=== PATIENT | female | born 1975 | race Caucasian/White ===

== ENCOUNTER → 2017-10-11 | Outpatient (CLI) | payer BC ==
--- NOTE | 2017-10-13 08:12 | MM ---
Reason for exam: screening (asymptomatic). Last mammogram was performed 1 year and 8 months ago. History: Patient had first child at age 33. Family history of breast cancer in mother at age 58. Took hormonal contraceptives for 1 year. Physical Findings: A clinical breast exam by your physician is recommended on an annual basis and results should be correlated with mammographic findings. MG 3D Screening Mammo W/Cad Bilateral CC and MLO view(s) were taken. Prior study comparison: February 26, 2016, mammogram, performed at [facility]. The breast tissue is heterogeneously dense. This may lower the sensitivity of mammography. There is no discrete abnormality. No significant changes when compared with prior studies. ASSESSMENT: Negative, BI-RAD 1 RECOMMENDATION: Routine screening mammogram of both breasts in 1 year.
== END | disposition home or self-care (01) ==
LOC: RADMAMWWP 16:10
PROVIDERS: ATTEND Family Medicine
DX: Z12.31 Encounter for screening mammogram for malignant neoplasm of breast (principal)
CPT/HCPCS: 77063; 77067

== ENCOUNTER → 2019-08-16 | Outpatient (CLI) | payer OTHER ==
--- NOTE | 2019-08-17 11:02 | MM ---
Reason for exam: screening (asymptomatic). Last mammogram was performed 1 year and 10 months ago. History: Patient had first child at age 33. Family history of breast cancer in mother at age 58. Took hormonal contraceptives for 1 year. Physical Findings: A clinical breast exam by your physician is recommended on an annual basis and results should be correlated with mammographic findings. MG 3D Screening Mammo W/Cad Bilateral CC and MLO view(s) were taken. Prior study comparison: October 11, 2017, bilateral MG 3d screening mammo w/cad. February 26, 2016, mammogram, performed at [facility]. The breast tissue is heterogeneously dense. This may lower the sensitivity of mammography. No significant changes when compared with prior studies. ASSESSMENT: Negative, BI-RAD 1 RECOMMENDATION: Routine screening mammogram of both breasts in 1 year.
== END | disposition home or self-care (01) ==
LOC: RADMAMWWP 08:53
PROVIDERS: ATTEND Family Medicine
DX: Z12.31 Encounter for screening mammogram for malignant neoplasm of breast (principal)
CPT/HCPCS: 77063; 77067

== ENCOUNTER → 2020-03-05 | Outpatient (CLI) | payer OTHER ==
--- NOTE | 2020-03-05 15:58 | P.HPBAR ---
Bariatric H&P - History & Physicial H&P Date: 03/05/20 History & Physicial: Visit/CC: Patient initial contact: Initial weight: Initial weight in pounds: Height: Initial BMI: Last weight: Current weight: Current weight in pounds: Current BMI: [place] body weight (based on NIH guidelines): Excess body weight loss: The patient is a 44 year-old F who presents for Bariatric Assessment. DATE OF SERVICE: 03/05/2020 REASON FOR CONSULTATION: Initial bariatric evaluation. HISTORY OF PRESENT ILLNESS: Hannah Thomas is a 44-year-old female who comes with lifelong morbid obesity. She comes in looking into the sleeve gastrectomy. She has done medical weight loss, slim fast, nutrisystem, keto diet without successful weight loss. Her highest weight is 322 pounds. Her most weight loss was medical weight loss of 60 pounds. Both parents have trouble with obesity. She denies moderate gastroesphageal reflux disease. She denies stomach or esophageal cancer in the family. She is also look into bypass. She presents to me for the first time in consultation for surgical weight loss options. At height of 5 feet 6 inches, her ideal body weight is 144 pounds. Her highest weight is 322 pounds, body mass index 52.1. She comes in 316 pounds. Her body mass index is 51.2. She is 162 pounds overweight. PAST MEDICAL HISTORY: 1. Morbid obesity due to excess calories 2. Body mass index of , initial 3. Hyperlipidemia 4. Depressive disorder 5. Generalized anxiety disorder 6. Bipolar disorder PAST SURGICAL HISTORY: 1. section HOME MEDICATIONS: Home Medications Medication Instructions Recorded Confirmed Atorvastatin [Lipitor] 20 mg PO DAILY 03/04/20 03/05/20 DULoxetine HCL [Cymbalta] 120 mg PO HS 03/04/20 03/05/20 Ergocalciferol [Vitamin D2 (1250 125 mg PO DAILY 03/04/20 03/05/20 Mcg = [id number] Iu)] Lurasidone [Latuda] 40 mg PO HS 03/04/20 03/05/20 lamoTRIgine [LaMICtal] 100 mg PO DAILY 03/04/20 03/05/20 ALLERGIES: Allergies Allergy/AdvReac Type Severity Reaction Status Date / Time Penicillins Allergy Rash/Hives Verified 03/05/20 17:08 SOCIAL HISTORY: Denies tobacco use. FAMILY HISTORY: No family history of ulcerative colitis disease or Crohn's disease. Family history of morbid obesity. No lupus in the family. No reports of stomach or esophageal cancer. REVIEW OF ORGAN SYSTEMS: CONSTITUTIONAL: At height of 5 feet 6 inches, her ideal body weight is 144 pounds. Her highest weight is 322 pounds, body mass index 52.1. She comes in 316 pounds. Her body mass index is 51.2. She is 162 pounds overweight. HEENT: Denies any active troubles with vision or hearing. ENDOCRINE: Denies diabetes. No hypothyroidism. CARDIOVASCULAR: Past reports of palpitations or heart attacks or chest pain. Has hyperlipidemia RESPIRATORY: Has daytime somnolence. Denies asthma. GASTROINTESTINAL: Denies any bright red blood per rectum. No diarrhea. No constipation. MUSCULOSKELETAL: Has lower back pain and joint pain. Has osteoarthritis of the knees. NEURO: No headaches. No seizure disorders. PSYCH: Has depression. No suicidal ideation. Has anxiety. Has bipolar disorder. RHEUMATOLOGIC: No lupus. No rheumatoid arthritis. HEMATOLOGIC: Denies any abnormal bleeding or bruising. No personal history of DVTs. SKIN: No rash. No skin cancer. PHYSICAL EXAM: VITAL SIGNS: Height 5 foot 6 inches, weight 316 pounds. BMI 51.2 Vital Signs Temp 98.2 F 03/05/20 15:55 Pulse 87 03/05/20 15:55 Resp BP 170/84 03/05/20 15:55 Pulse Ox GENERAL: Well-developed in no acute distress. HEENT: No scleral icterus. Extraocular movements grossly intact. Hears conversational speech. No nasal drainage. NECK: Supple without lymphadenopathy. CHEST: Nonlabored respirations with equal bilateral excursions. CARDIOVASCULAR: Regular rate and regular rhythm. Distal 2+ pulses. ABDOMEN: Obese, soft, nontender, nondistended. MUSCULOSKELETAL: No clubbing, cyanosis. Gross strength 5/5 distal lower extremities. NEURO: No focal or lateralizing signs. Cranial nerves 2 through 12 grossly within normal limits. PSYCH: Appropriate affect. Alert and oriented to person, place and time. SKIN: Good skin turgor. Well perfused. ASSESSMENT: 1. Morbid obesity due to excess calories 2. Body mass index of , initial 3. Hyperlipidemia 4. Depressive disorder 5. Generalized anxiety disorder 6. Bipolar disorder PLAN: 1. Surgical options including a band, gastric bypass, sleeve gastrectomy were described in detail. Alternatives such as gastric balloon including duodenal switch were described. She is looking into the gastric bypass. 2. The [place] bariatric surgical collaborative data and outcomes calculator were described with surgical options. 3. Recommend a bariatric metabolic panel to evaluate for micro- including macronutrient deficiencies. 4. For history of daytime somnolence, recommend evaluation and treatment for sleep apnea. 5. Dietary surveillance and counseling was reviewed. Increased protein intake over 65 grams daily advised. 6. Will need cardiac risk assessment. 7. Recommend medical risk assessment. 8. Psych assessment per insurance guidelines. 9. Recommend upper endoscopy. 10. Recommend 12-lead EKG. Thank you for this consultation. Past Medical History Past Medical History: Hyperlipidemia History of Any Multi-Drug Resistant Organisms: None Reported Past Surgical History: Section Past Anesthesia/Blood Transfusion Reactions: No Reported Reaction Past Psychological History: Anxiety, Bipolar, Depression Smoking Status: Never smoker Past Alcohol Use History: Occasional Past Drug Use History: None Reported Results - Labs 03/05/20 16:26 03/05/20 16:26 Bariatric Checklist Checklist: Plan: Checklist: EGD: 1. Hiatal hernia: 2. H. Pylori: HgbA1c: Vitamin D: Smoking: Primary care physician referral: Psychiatry clearance: Cardiology clearance: Sleep study: Diet journal: VTE risk score: VTE risk level: Rehab needs at discharge:
[2020-03-05 16:02] VITALS: BP 170/84; PULSE 87; TEMP 98.2; BMI 51.1
[2020-03-05 17:03] LABS: HGB 14.2 gm/dL (11.4-16.0); MCH 28.4 pg (25.0-35.0); MCHC 33.8 g/dL (31.0-37.0); MCV 83.8 fL (80.0-100.0); Mean Platelet Volume 6.3; Platelet Count 313 k/uL (150-450); RBC 5.02 m/uL (3.80-5.40); RDW 14.9 % (11.5-15.5); WBC 9.2 k/uL (3.8-10.6)
[2020-03-06 02:01] LABS: Hemoglobin A1C 5.2 % (4.0-6.0)
[2020-03-06 04:31] LABS: INR 0.96 (0.90-1.11); Partial Thromboplastin Time 30.9 sec (23.5-31.0); Prothrombin Time 10.4 sec (9.9-11.9)
[2020-03-06 07:16] LABS: % Iron Saturation 12.08 (12.00-45.00); African American GFR (CKD) 90.8 (60.0-200.0); Albumin 4.9 g/dL (3.80-4.90); Albumin/Globulin Ratio 2.23 (1.60-3.17); Anion Gap 10.9 mmol/L (4.00-12.00); BUN/Creat Ratio 8.89 Ratio (12.00-20.00); Calcium 9.9 mg/dL (8.7-10.3); Carbon Dioxide 28.1 mmol/L (21.6-31.8); Chol/HDL Ratio 3.92; Globulin 2.2 g/dL (1.6-3.3); LDL Cholesterol,Calculated 104.4 mg/dL (0.0-131.0); Magnesium 1.9 mg/dL (1.5-2.4); Non-African American GFR(CKD) 78.3 (60.0-200.0); Phosphorus 4.4 mg/dL (2.4-5.1); Potassium 4.4 mmol/L (3.5-5.5); Total Bilirubin 0.4 mg/dL (0.3-1.2); Total Protein 7.1 g/dL (6.2-8.2); VLDL Calculation 35.6 mg/dL (5.00-40.00)
[2020-03-06 09:55] LABS: Folate, Serum 14.7 ng/mL
[2020-03-07 06:14] LABS: Zinc, Serum 58 ug/dL (60-130)
[2020-03-07 07:58] LABS: Vitamin A 74 ug/dL (38-106)
[2020-03-07 08:28] LABS: Vit B1(Thiamine) 108 ug/L (38-122)
[2020-03-10 18:06] LABS: Selenium 126 mcg/L (63-160)
== END | disposition home or self-care (01) ==
LOC: BARWHC3 14:46
PROVIDERS: ATTEND Surgery Plastic and Reconstructive Surgery
DX: E66.01 Morbid (severe) obesity due to excess calories (principal); Z68.43 Body mass index [BMI] 50.0-59.9, adult; E78.5 Hyperlipidemia, unspecified; F31.9 Bipolar disorder, unspecified; Z79.899 Other long term (current) drug therapy
CPT/HCPCS: 84255; 84134; 84425; 80061; 80053; 82607; 82728; 82525; 82746; 83540; 83550; 83735; 84100; 84443; 84590; 84630; 85027; 85610; 85730; 82306; 83970; 83036; 93005; 36415; G0463; 99203

== ENCOUNTER 2020-04-09 06:36 | Day surgery (SDC) | payer OTHER ==
[2020-04-04 10:39] VITALS: BMI 51.1
[~2020-04-09 06:36] MED LIST: LACTATED RINGERS 1,000 ML IV SCH; LIDOCAINE 1% (10MG/ML) FOR IV START INTRADERMA PRN
[2020-04-09 08:05] VITALS: TEMP 97.9
--- NOTE | 2020-04-09 08:41 | P.GSHP ---
History of Present Illness H&P Date: 04/09/20 CHIEF COMPLAINT: GERD HISTORY OF PRESENT ILLNESS: The patient is a 44-year-old female who presents reports gastroesophageal reflux disease. Upper endoscopy was offered for further evaluation and management. PAST MEDICAL HISTORY: Please see list. PAST SURGICAL HISTORY: Please see list. MEDICATIONS: Please see list. ALLERGIES: Please see list. SOCIAL HISTORY: No illicit drug use FAMILY HISTORY: No reports of Crohn disease or ulcerative colitis. REVIEW OF ORGAN SYSTEMS: CONSTITUTIONAL: No reports of fevers or chills. GI: Denies any blood in stools or constipation. PHYSICAL EXAM: VITAL SIGNS: Stable GENERAL: Well-developed and pleasant in no acute distress. HEENT: No scleral icterus. Extraocular movements grossly intact. Moist buccal mucosa. NECK: Supple without lymphadenopathy. CHEST: Unlabored respirations. Equal bilateral excursions. CARDIOVASCULAR: Regular rate and rhythm. Distal 2+ pulses. ABDOMEN: Soft, nondistended. MUSCULOSKELETAL: No clubbing, cyanosis, or edema. ASSESSMENT: 1. Gastroesophageal reflux disease PLAN: 1. Recommend proceeding with an upper endoscopy Past Medical History Past Medical History: Hyperlipidemia History of Any Multi-Drug Resistant Organisms: None Reported Past Surgical History: Section Past Anesthesia/Blood Transfusion Reactions: No Reported Reaction Smoking Status: Never smoker Medications and Allergies Home Medications Medication Instructions Recorded Confirmed Type Atorvastatin [Lipitor] 20 mg PO DAILY 03/04/20 04/09/20 History Lurasidone [Latuda] 40 mg PO HS 03/04/20 04/09/20 History lamoTRIgine [LaMICtal] 100 mg PO DAILY 03/04/20 04/09/20 History Calcium Carbonate [Calcium] 600 mg PO DAILY 04/04/20 04/09/20 History Ferrous Sulfate [Feosol] 325 mg PO DAILY 04/04/20 04/09/20 History Zinc 50 mg PO DAILY 04/04/20 04/09/20 History buPROPion XL [Wellbutrin Xl] 150 mg PO DAILY 04/04/20 04/09/20 History Allergies Allergy/AdvReac Type Severity Reaction Status Date / Time Penicillins Allergy Rash/Hives Verified 04/09/20 08:04 Surgical - Exam Vital Signs Temp Pulse Resp BP Pulse Ox 97.9 F 84 17 159/83 98 04/09/20 08:01 04/09/20 08:01 04/09/20 08:01 04/09/20 08:01 04/09/20 08:01
[2020-04-09] MEDS ORDERED: PROPOFOL 10 MG/ML 20 ML VIAL IV ONE (09:02)
--- NOTE | 2020-04-09 09:21 | P.PCN ---
Date of Procedure: 04/09/20 Description of Procedure: PREOPERATIVE DIAGNOSIS: Gastroesophageal reflux disease. Morbid obesity. POSTOPERATIVE DIAGNOSIS: Morbid obesity. Gastritis. Gastroesophageal reflux disease. Diaphragmatic hiatal hernia OPERATION: Esophagogastroduodenoscopy with biopsies along antrum. SURGEON: Mago Lau MD ANESTHESIA: MAC. INDICATIONS: The patient is a 44-year-old female who presents with a history of reflux disease. Benefits and risks of the procedure were described. Informed consent was obtained. DESCRIPTION: The patient was brought into the endoscopy suite and laid in the left lateral decubitus position. An Olympus gastroscope was passed along the posterior oropharynx down to the distal esophagus where the squamocolumnar junction was encountered at 37 cm from the incisors. The stomach was entered and no bile reflux was found. Additional findings are listed below. Biopsies with cold f orceps were obtained of the antrum. The first through third portion of the duodenum was examined and unremarkable. Retroflexion of the scope confirmed Hill grade 3 lower esophageal valve. The squamocolumnar junction demonstrated LA grade B erosive esophagitis. The stomach was desufflated. The patient tolerated the procedure well. FINDINGS: Squamocolumnar junction 37 cm from the incisors. Diaphragmatic hiatus at 40 cm. Hiatal hernia, 3 cm, sliding type Hill grade 3 lower esophageal valve. LA grade B erosive esophagitis. No active duodenitis. Chronic gastritis RECOMMENDATIONS: Upper endoscopy as needed. Plan - Discharge Summary Discharge Rx Participant: No New Discharge Prescriptions: Continue Atorvastatin [Lipitor] 20 mg PO DAILY lamoTRIgine [LaMICtal] 100 mg PO DAILY Lurasidone [Latuda] 40 mg PO HS Zinc 50 mg PO DAILY Ferrous Sulfate [Iron (65 MG Elemental)] 325 mg PO DAILY Calcium Carbonate [Calcium] 600 mg PO DAILY buPROPion XL [Wellbutrin XL] 150 mg PO DAILY Discharge Medication List Atorvastatin [Lipitor] 20 mg PO DAILY 03/04/20 [History] Lurasidone [Latuda] 40 mg PO HS 03/04/20 [History] lamoTRIgine [LaMICtal] 100 mg PO DAILY 03/04/20 [History] Calcium Carbonate [Calcium] 600 mg PO DAILY 04/04/20 [History] Ferrous Sulfate [Iron (65 MG Elemental)] 325 mg PO DAILY 04/04/20 [History] Zinc 50 mg PO DAILY 04/04/20 [History] buPROPion XL [Wellbutrin XL] 150 mg PO DAILY 04/04/20 [History] Follow up Appointment(s)/Referral(s): [facility] [NON-STAFF] - 04/23/20 Patient Instructions/Handouts: *Surgery [facility] - (Anesthesia) Endoscopy Discharge Instructions, Hiatal Hernia (DC), Upper Endoscopy (DC) Discharge Disposition: HOME SELF-CARE
[2020-04-09 09:24] VITALS: RESP 16
[2020-04-09 09:49] VITALS: BP 117/78; PULSE 78
== END 2020-04-09 10:02 | disposition home or self-care (01) ==
LOC: ORWHC2ENDO 06:36
PROVIDERS: ATTEND Surgery Plastic and Reconstructive Surgery
DX: K29.50 Unspecified chronic gastritis without bleeding (principal); K31.9 Disease of stomach and duodenum, unspecified; K21.00 Gastro-esophageal reflux disease with esophagitis, without bleeding; K22.10 Ulcer of esophagus without bleeding; E66.01 Morbid (severe) obesity due to excess calories; K44.9 Diaphragmatic hernia without obstruction or gangrene; E78.5 Hyperlipidemia, unspecified; F32.9 Major depressive disorder, single episode, unspecified; Z79.899 Other long term (current) drug therapy; Z88.0 Allergy status to penicillin; Z98.891 History of uterine scar from previous surgery; Z68.42 Body mass index [BMI] 45.0-49.9, adult
CPT/HCPCS: 81025; 88305; 43239; J2704

== ENCOUNTER → 2020-04-16 | Outpatient (CLI) | payer OTHER ==
[2020-04-16 14:58] VITALS: BP 131/80; PULSE 87; RESP 18; TEMP 97.8; BMI 49.2
--- NOTE | 2020-04-16 15:29 | P.PN ---
Subjective Progress Note Date: 04/16/20 Labs reviewed. She is looking the gastric bypass. All looks good. Objective - Vital Signs Vital signs: Vital Signs Temp 97.8 F 04/16/20 14:50 Pulse 87 04/16/20 14:50 Resp 18 04/16/20 14:50 BP 131/80 04/16/20 14:50 Pulse Ox Intake & Output 04/15/20 04/16/20 04/16/20 18:59 06:59 18:59 Weight 138.346 kg
== END ==
LOC: BARWHC3 14:10
PROVIDERS: ATTEND Surgery Plastic and Reconstructive Surgery
DX: E66.01 Morbid (severe) obesity due to excess calories (principal); E78.5 Hyperlipidemia, unspecified; F31.9 Bipolar disorder, unspecified; Z68.42 Body mass index [BMI] 45.0-49.9, adult
CPT/HCPCS: 99211

== ENCOUNTER → 2020-06-11 | Outpatient (CLI) | payer OTHER | END | disposition home or self-care (01) | LOC: LABWHC1 10:05 | PROVIDERS: ATTEND Physician Assistant | DX: E20.0 Idiopathic hypoparathyroidism (principal) | CPT/HCPCS: 36415; 82310; 83970 ==

== ENCOUNTER 2020-09-11 18:01 | Emergency (ER) | payer OTHER ==
[2020-09-11 18:27] VITALS: BP 182/94; PULSE 93; RESP 18; TEMP 97.8
[2020-09-11] MEDS ORDERED: methylPREDNISolone SOD SUCCI 125 MG/2 ML VIAL IM ONE (19:09)
--- NOTE | 2020-09-11 19:22 | ED ---
Skin/Abscess/FB HPI - General Chief complaint: Skin/Abscess/Foreign Body Stated complaint: possible blood clot Time Seen by Provider: 09/11/20 18:59 Source: patient Mode of arrival: ambulatory Limitations: no limitations - History of Present Illness Initial comments: Patient is a 45-year-old female presenting to the emergency Department with complaints of a rash and concerns for possible blood clot. Patient states she was burning brush about 11 days ago and started developing poison ambar on her left arm. She states shortly after they went down to [place] and wasn't dizzy, she states her rash then increased and got a lot worse. She has been using 1% hydrocortisone cream as well as taking Benadryl. She states her rash is spreading and progress to getting worse and she went to her doctor. Her doctor was concerned of pain in her left knee and told her she should go get evaluated for possible blood clot. Patient has a large area of skin rash and poison ambar over her left knee, she has no pain of her left calf. Denies chest pain or shortness of breath, no cough. She denies any fevers or chills. She is no further complaints at this time. - Related Data Home Medications Medication Instructions Recorded Confirmed Calcium Carbonate [Calcium] 600 mg PO BID 04/04/20 04/16/20 Ferrous Sulfate [Iron (65 MG 65 mg PO DAILY 04/04/20 04/16/20 Elemental)] Zinc 50 mg PO DAILY 04/04/20 04/16/20 Cholecalciferol (Vitamin D3) 125 mcg PO BID 04/16/20 04/16/20 [Vitamin D3 (5000 Iu)] LORazepam [Ativan] 0.5 mg PO DIRECTED PRN 04/16/20 04/16/20 Omeprazole [PriLOSEC] 20 mg PO AC-BRKFST 04/16/20 04/16/20 ondansetron HCL [Zofran] 8 mg PO Q8HR PRN 04/16/20 04/16/20 Previous Rx's Medication Instructions Recorded Cephalexin [Keflex] 500 mg PO Q6HR 5 Days #20 cap 09/11/20 Hydrocortisone Cream 1 applic TOPICAL BID 5 Days #1 tube 09/11/20 [Hydrocortisone 2.5% Cream] predniSONE 50 mg PO DAILY #5 tab 09/11/20 Allergies Allergy/AdvReac Type Severity Reaction Status Date / Time Penicillins Allergy Rash/Hives Verified 09/11/20 18:27 Review of Systems ROS Statement: Those systems with pertinent positive or pertinent negative responses have been documented in the HPI. ROS Other: All systems not noted in ROS Statement are negative. Past Medical History Past Medical History: Hyperlipidemia History of Any Multi-Drug Resistant Organisms: None Reported Past Surgical History: Section Past Anesthesia/Blood Transfusion Reactions: No Reported Reaction Past Psychological History: Anxiety, Bipolar, Depression Smoking Status: Never smoker Past Alcohol Use History: Occasional Past Drug Use History: None Reported General Exam - General Exam Comments Initial Comments: GENERAL: Patient is well-developed and well-nourished. Patient is nontoxic and in no acute distress. HEAD: Atraumatic, normocephalic. EYES: Pupils equal round and reactive to light, extraocular movements intact, sclera anicteric, conjunctiva are normal. Eyelids were unremarkable. ENT: Nares patent, oropharynx clear without exudates. Moist mucous membranes. NECK: Normal range of motion, supple without lymphadenopathy or JVD. LUNGS: Unlabored respirations. Breath sounds clear to auscultation bilaterally and equal. No wheezes rales or rhonchi. HEART: Regular rate and rhythm without murmurs, rubs or gallops. ABDOMEN: Soft, nontender, normoactive bowel sounds. MUSCULOSKELETAL: She has no pain of bilateral lower calf. No redness or swelling of the bilateral lower cast. Vascular intact bilaterally. Normal extremities with adequate strength and normal range of motion, no pitting or edema. No clubbing or cyanosis. NEUROLOGICAL: Patient is alert and oriented x 3. SKIN: Warm, Dry, normal turgor. Patient has erythematous, macular, papular rash no clayton to left arm, trunk, left knee consistent with poison ambar. Limitations: no limitations Course Vital Signs 09/11/20 18:22 Temperature 97.8 F Pulse Rate 93 Respiratory 18 Rate Blood Pressure 182/94 O2 Sat by Pulse 100 Oximetry Medical Decision Making - Medical Decision Making Patient is a 45-year-old female here with poison ambar that she's had for about 10 days. Mostly on her left arm, trunk, left knee. This is erythematous, pruritic. She has been taking Benadryl and using 1% hydrocortisone cream without much improvement. He has no pain of the bilateral lower calf, have no concerns for blood clot at this time. Patient will be given a shot of steroids today and continued on steroids over the next few days. I also give her 2% hydrocortisone cream and antibiotics and she will continue with Benadryl as needed. She will follow up with her primary care. She is agreeable to this plan of care. Return parameters were discussed with her and she verbalized understanding. Case discussed with Dr. Meyers. Disposition Clinical Impression: Poison ambar dermatitis Disposition: HOME SELF-CARE Condition: Stable Instructions (If sedation given, give patient instructions): Poison Ambar (ED) Additional Instructions: Please return to the Emergency Department if symptoms worsen or any other concerns. Take steroids as prescribed, starting tomorrow. Take antibiotics as prescribed, use cream. Follow-up with your family doctor. Prescriptions: Hydrocortisone Cream [Hydrocortisone 2.5% Cream] 1 applic TOPICAL BID 5 Days #1 tube Cephalexin [Keflex] 500 mg PO Q6HR 5 Days #20 cap predniSONE 50 mg PO DAILY #5 tab Is patient prescribed a controlled substance at d/c from ED?: No Referrals: Saran Salgado MD [Primary Care Provider] - 1-2 days Time of Disposition: 19:21
== END 2020-09-11 19:32 | disposition home or self-care (01) ==
LOC: EC 18:01
DX: L23.7 Allergic contact dermatitis due to plants, except food (principal); E78.5 Hyperlipidemia, unspecified; F31.9 Bipolar disorder, unspecified; F41.9 Anxiety disorder, unspecified; Z88.0 Allergy status to penicillin; Z79.899 Other long term (current) drug therapy
CPT/HCPCS: 96372; 99282; J2930

== ENCOUNTER → 2020-11-06 | Outpatient (CLI) | payer OTHER ==
--- NOTE | 2020-11-07 09:44 | MM ---
Reason for exam: screening (asymptomatic). Last mammogram was performed 1 year and 3 months ago. History: Patient had first child at age 33. Family history of breast cancer in mother at age 58. Took hormonal contraceptives for 1 year. Physical Findings: A clinical breast exam by your physician is recommended on an annual basis and results should be correlated with mammographic findings. MG 3D Screening Mammo W/Cad Bilateral CC and MLO view(s) were taken. Prior study comparison: August 16, 2019, bilateral MG 3d screening mammo w/cad. October 11, 2017, bilateral MG 3d screening mammo w/cad. The breast tissue is heterogeneously dense. This may lower the sensitivity of mammography. There is no discrete abnormality. No significant changes when compared with prior studies. ASSESSMENT: Negative, BI-RAD 1 RECOMMENDATION: Routine screening mammogram of both breasts in 1 year.
== END | disposition home or self-care (01) ==
LOC: RADMAMWWP 11:25
PROVIDERS: ATTEND Family Medicine
DX: Z12.31 Encounter for screening mammogram for malignant neoplasm of breast (principal); Z80.3 Family history of malignant neoplasm of breast
CPT/HCPCS: 77063; 77067

== ENCOUNTER → 2021-03-19 | Outpatient (CLI) | payer OTHER ==
--- NOTE | 2021-03-19 16:21 | US ---
EXAMINATION TYPE: US pelvis complete transvag DATE OF EXAM: 03/19/2021 COMPARISON: NONE CLINICAL HISTORY: N91.2 AMENORRHEA. No period x 3-4 months. No pain. No spotting. TECHNIQUE: Transvaginal (TV) and Transabdominal (TA) . Transabdominal sonographic images of the pel vis were acquired. Transvaginal sonographic images were medically necessary to better assess the fol lowing anatomy: Ovaries, endometrium Date of LMP: 11/2020, EXAM MEASUREMENTS: Uterus: 8.8 x 4.6 x 3.5 cm Endometrial Stripe: 0.3 cm 1. Uterus: Anteverted Appears heterogenous 2. Endometrium: wnl 3. Right Ovary: Obscured by overlying bowel gas 4. Left Ovary: Obscured by overlying bowel gas 5. Bilateral Adnexa: wnl 6. Posterior cul-de-sac: no free fluid Cervix- fluid within cervical canal. Left echogenic nonvascular lesion = 1.5 x 1.2 x 1.0 cm Heterogeneous anteverted uterus. Endometrium is thinned measuring 3 mm. No free fluid in pelvic cul-d e-sac. Within the left aspect of cervix there is hyperechoic 1.2 cm structure of uncertain etiology. Correlate with direct physical exam advised. Neither ovary clearly seen. No adnexal masses noted. IMPRESSION: Markedly thinned endometrium. Cannot identify normal or abnormal ovaries. Unusual hyperec hoic 1.2 cm structure left cervix. Advise clinical and lab follow-up. Consider pelvic MRI to further evaluate or search for ovaries.
== END | disposition home or self-care (01) ==
LOC: RADUSWWP 15:16
PROVIDERS: ATTEND Family Medicine
DX: R93.89 Abnormal findings on diagnostic imaging of other specified body structures (principal); N88.8 Other specified noninflammatory disorders of cervix uteri
CPT/HCPCS: 76830; 76856

== ENCOUNTER → 2021-04-02 | Outpatient (CLI) | payer OTHER ==
--- NOTE | 2021-04-02 12:16 | MR ---
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 TECHNIQUE: Multiplanar, multisequence images of the brain and brainstem were acquired before and aft er administration of 13 mL IV Gadavist. Diffusion weighted imaging was performed. Additional coned- down sequences through the internal auditory canals and posterior cranial fossa before and after IV c ontrast administration. FINDINGS: Diffusion weighted images demonstrate no evidence of an acute ischemic lesion in the brain. T2/FLAIR weighted sequences show no white matter signal abnormality. Midline structures demonstrate a 9 mm pineal gland cyst but otherwise normal morphology. The cranioc ervical junction is normal. Brain volume is age appropriate. No hydrocephalus. There is no evidence of an acute intracranial hemorrhage, infarct, mass, mass-effect or an extra-axia l fluid collection. There is no cerebellopontine angle mass. Internal auditory canals are symmetric. Brainstem and skull base abnormalities are not seen. Post contrast images demonstrate no evidence of pathologic enhancement in the posterior cranial fossa or the internal auditory canals. There is no abnormal enhancement of the labyrinths. No additional abnormal enhancement within the brain. Dural venous sinuses are patent. Trace mucosal thickening ethmoid air cells. Mastoid air cells well pneumatized. The globes are intact . IMPRESSION: 1. No acute intracranial abnormality seen. No abnormal enhancing lesions. 2. No specific abnormality on acoustic MRI. 3. Incidental 9 mm pineal gland cyst. Consider a 6-12 month follow-up exam to reassess
== END | disposition home or self-care (01) ==
LOC: RADMRIMAIN 10:27
PROVIDERS: ATTEND Otolaryngology
DX: H91.91 Unspecified hearing loss, right ear (principal)
CPT/HCPCS: 70553; A9585

== ENCOUNTER → 2021-04-28 | Outpatient (CLI) | payer OTHER ==
--- NOTE | 2021-04-28 13:13 | MR ---
EXAMINATION TYPE: MR pelvis wo/w con DATE OF EXAM: 04/28/2021 COMPARISON: Pelvic ultrasound March 19, 2021 HISTORY: Amenorrhea. CONTRAST: Standard multiplanar, multisequence MRI departmental protocol images were obtained without contrast a nd with 13 mL intravenous Gadavist gadolinium contrast. FINDINGS: Anteverted uterus measures approximately 7.2 x 3.7 x 5.7 cm. No suspicious thickening of th e endometrial stripe. A few tiny nabothian cyst. The cervix are redemonstrated. Corresponding to rece nt ultrasound there is a oval hyperechoic 1.3 x 1.0 x 1.3 cm structure in the left aspect of the cerv ix that is slightly hyperintense relative to remainder of cervix on T1-weighted images and hypointens e on T2-weighted images without enhancement. Etiology uncertain. Cervical leiomyoma would be in diffe rential. Suggestion of some calcification on ultrasound and MRI noted. No free fluid in pelvic cul-de -sac. Left ovary seen measuring 2.8 x 1.6 x 2.1 cm slightly small in size with a few tiny peripheral follic les. Right ovary is smaller in size less well seen near axial image 24. No suspicious adnexal masses are identified. No suspicious small or large bowel dilatation. Visualized osseous structures are intact. Visualized b ladder appears within normal limits. IMPRESSION: 1. Confirmation of left cervical 1.3 cm lesion of uncertain etiology. Lack of enhancement and low T2 signal favors benign etiology such as cervical leiomyoma. 2. Visualized ovaries are small in size particularly right ovary. No adnexal masses evident.
== END | disposition home or self-care (01) ==
LOC: RADMRIMAIN 08:24
PROVIDERS: ATTEND Physician Assistant Medical
DX: N88.8 Other specified noninflammatory disorders of cervix uteri (principal); N91.2 Amenorrhea, unspecified
CPT/HCPCS: 72197; A9585

== ENCOUNTER → 2021-12-10 | Outpatient (CLI) | payer MEDICARE, OTHER ==
--- NOTE | 2021-12-11 07:40 | MM ---
Reason for Exam: Screening (asymptomatic). Last mammogram was performed 1 year(s) and 1 month(s) ago. Patient History: Menarche at age 13. First Full-Term at age 33. Late child-bearing (after 30). Currently using Hormonal Contraceptives, starting at age 41. Mother had breast cancer, age 58. Risk Values: Marylou 5 year model risk: 1.7%. NCI Lifetime model risk: 18.5%. Prior Study Comparison: 10/11/2017 Bilateral Screening Mammogram, [facility]. 08/16/2019 Bilateral Screening Mammogram, [facility]. 11/06/2020 Bilateral Screening Mammogram, [facility]. Tissue Density: The breast tissue is heterogeneously dense. This may lower the sensitivity of mammography. Findings: Analyzed By CAD. There is no suspicious group of microcalcifications or new suspicious mass in either breast. Overall Assessment: Negative, BI-RAD 1 Management: Screening Mammogram of both breasts in 1 year. A clinical breast exam by your physician is recommended on an annual basis and results should be correlated with mammographic findings. Electronically signed and approved by: Tyrone Erazo M.D. Radiologis
== END | disposition home or self-care (01) ==
LOC: RADMAMWWP 07:05
PROVIDERS: ATTEND Family Medicine
DX: Z12.31 Encounter for screening mammogram for malignant neoplasm of breast (principal); Z80.3 Family history of malignant neoplasm of breast
CPT/HCPCS: 77067

== ENCOUNTER → 2022-12-20 | Outpatient (CLI) | payer MEDICARE, OTHER ==
--- NOTE | 2022-12-21 18:45 | MM ---
Reason for Exam: Screening (asymptomatic). Last mammogram was performed 1 year(s) and 1 month(s) ago. Patient History: Menarche at age 13. First Full-Term at age 33. Late child-bearing (after 30). Premenopausal. Currently using Hormonal Contraceptives, starting at age 41. Maternal grandmother had breast cancer. Mother had breast cancer, age 58. Last menstrual period: 12/13/2022 Risk Values: Marylou 5 year model risk: 1.7%. NCI Lifetime model risk: 18.2%. Prior Study Comparison: 08/16/2019 Bilateral Screening Mammogram, [facility]. 11/06/2020 Bilateral Screening Mammogram, [facility]. 12/10/2021 Bilateral MG screening mammo w CAD, [facility]. Tissue Density: There are scattered fibroglandular densities. Findings: Analyzed By CAD. There is no suspicious group of microcalcifications or new suspicious mass in either breast. Overall Assessment: Negative, BI-RAD 1 Management: Screening Mammogram of both breasts in 1 year. . Patient should continue monthly self-breast exams. A clinical breast exam by your physician is recommended on an annual basis. This exam should not preclude additional follow-up of suspicious palpable abnormalities. Note on Marylou scores and lifetime risk: 1. A Marylou score greater than 3% is considered moderate risk. If this is the case, consider specialist referral to assess eligibility for a risk reducing agent. 2. If overall lifetime risk for the development of breast cancer is 20% or higher, the patient may qualify for future screening with alternating mammogram and breast MRI. Electronically signed and approved by: Navid Solorzano M.D. Radiologist
== END | disposition home or self-care (01) ==
LOC: RADMAMWWP 16:49
PROVIDERS: ATTEND Family Medicine
DX: Z12.31 Encounter for screening mammogram for malignant neoplasm of breast (principal); Z80.3 Family history of malignant neoplasm of breast
CPT/HCPCS: 77063; 77067

== ENCOUNTER → 2023-12-28 | Outpatient (CLI) | payer BC ==
--- NOTE | 2024-01-01 15:28 | MM ---
Reason for Exam: Screening (asymptomatic). Last screening mammogram was performed 12 month(s) ago. Patient History: Menarche at age 13. First Full-Term at age 33. Late child-bearing (after 30). Premenopausal. Currently using Hormonal Contraceptives, starting at age 41. Maternal grandmother had breast cancer. Mother had breast cancer, age 58. Last menstrual period: 12/12/2023 Risk Values: Marylou 5 year model risk: 1.8%. NCI Lifetime model risk: 18.0%. Prior Study Comparison: 11/06/2020 Bilateral Screening Mammogram, [facility]. 12/10/2021 Bilateral MG screening mammo w CAD, [facility]. 12/20/2022 Bilateral MG 3D screening mammo w/cad, [facility]. Tissue Density: There are scattered areas of fibroglandular density. Findings: Analyzed By CAD. The pattern is symmetrical. Pattern is stable. No suspicious groups of microcalcifications, spiculated or lobular masses, architectural distortion or other secondary signs of malignancy are mammographically apparent. Overall Assessment: Benign, BI-RAD 2 Management: Screening Mammogram of both breasts in 1 year. A negative mammogram report should not preclude additional follow up of suspicious palpable abnormalities. Patient should continue monthly self breast exam. A clinical breast exam by your physician is recommended on an annual basis and results should be correlated with mammographic findings. Note on Marylou scores and lifetime risk: 1. A Marylou score greater than 3% is considered moderate risk. If this is the case, consider specialist referral to assess eligibility for a risk reducing agent. 2. If overall lifetime risk for the development of breast cancer is 20% or higher, the patient may qualify for future screening with alternating mammogram and breast MRI. [facility], , 01/01/2024 3:25 PM. Electronically signed and approved by: Mario Cary D.O. Radiologis
== END | disposition home or self-care (01) ==
LOC: RADMAMWWP 16:07
PROVIDERS: ATTEND Family Medicine
DX: Z12.31 Encounter for screening mammogram for malignant neoplasm of breast (principal); R92.323 Mammographic fibroglandular density, bilateral breasts; Z80.3 Family history of malignant neoplasm of breast
CPT/HCPCS: 77063; 77067

== ENCOUNTER → 2024-04-18 | Outpatient (CLI) | payer BC ==
--- NOTE | 2024-04-27 00:30 | EM ---
EVENT MONITOR The patient was monitored between the and the April. CLINICAL INFORMATION: Baseline rhythm is sinus mechanism. The average rate 75 beats per minute, minimum of 53, maximum of 120 beats per minute. Ventricular ectopic activity was present in the form of rare single PVCs with a burden of 1%. Rare single PACs were noted. No symptoms were reported. MMGAVIOTA / SELWYN: [id number] /
== END | disposition home or self-care (01) ==
LOC: RADECHMAIN 07:04
PROVIDERS: ATTEND Family Medicine
DX: R00.0 Tachycardia, unspecified (principal); I49.3 Ventricular premature depolarization
CPT/HCPCS: 93270

== ENCOUNTER 2024-06-20 10:28 | Observation (INO) | payer BC ==
[2024-06-20 11:07] LABS: Basophils # (A) 0.03 10*3/uL (0.00-0.10); Basophils % (A) 0.4 %; Eosinophils # (A) 0.07 10*3/uL (0.04-0.35); HCT 37.6 % (37.2-46.3); HGB 13.1 g/dL (12.0-15.0); Lymphocytes # (A) 3.16 10*3/uL (0.90-5.00); MCH 29.4 pg (27.0-32.0); MCHC 34.8 g/dL (32.0-37.0); MCV 84.5 fL (80.0-97.0); Monocytes % (A) 5.6 %; Neutrophils # (A) 3.51 10*3/uL (1.80-7.70); Neutrophils % (A) 48.9 %; Platelet Count 279 10*3/uL (140-440); RBC 4.45 10*6/uL (4.10-5.20); RDW 13.4 % (11.5-14.5); WBC 7.18 10*3/uL (4.50-10.00)
--- NOTE | 2024-06-20 11:20 | XR ---
EXAMINATION TYPE: XR chest 2V DATE OF EXAM: 06/20/2024 11:05 AM COMPARISON: None TECHNIQUE: XR chest 2V Frontal and lateral views of the chest. CLINICAL INDICATION:Female, 48 years old with history of dysrhythmia; FINDINGS: Lungs/Pleura: There is no evidence of pleural effusion, focal consolidation, or pneumothorax. Pulmonary vascularity: Unremarkable. Heart/mediastinum: Cardiomediastinal silhouette is unremarkable. Musculoskeletal: No acute osseous pathology. IMPRESSION: No acute cardiopulmonary disease/process. [facility], , 06/20/2024 11:18 AM
[2024-06-20 11:21] LABS: Anion Gap 16 mmol/L; Blood Urea Nitrogen 12 mg/dL (7-17); Carbon Dioxide 18 mmol/L (22-30); Chloride 102 mmol/L (98-107); Glucose 73 mg/dL (74-99); Potassium 3.8 mmol/L (3.5-5.1); Sodium 136 mmol/L (137-145)
[2024-06-20 11:22] LABS: ALT 20 U/L (4-34); AST 21 U/L (14-36); African American GFR (CKD) 77 (>60 ml/min/1.73 sqM); Albumin 4.6 g/dL (3.5-5.0); Alkaline Phosphatase 96 U/L (38-126); Calcium 10.3 mg/dL (8.4-10.2); Magnesium 1.9 mg/dL (1.6-2.3); Non-African American GFR(CKD) 67 (>60 ml/min/1.73 sqM); Partial Thromboplastin Time 24.1 sec (22.0-30.0); Total Bilirubin 0.6 mg/dL (0.2-1.3)
[2024-06-20] MEDS: METOPROLOL TARTRATE 5 MG/5 ML VIAL IVP STA (13:33)
[2024-06-20] MEDS ORDERED: NALOXONE 0.4 MG/ML 1 ML VIAL IV PRN (14:29)
--- NOTE | 2024-06-20 14:29 | ED ---
Arrhythmia/Palpitations HPI - General Chief Complaint: Arrhythmia/Palpitations Stated Complaint: ALIX Time Seen by Provider: 06/20/24 10:35 Source: patient Mode of arrival: wheelchair Limitations: no limitations - History of Present Illness Initial Comments: 48-year-old female with past medical history of hyperlipidemia, hypertension who presents emergency department with rapid heart rate. Patient states she has had issues with an elevated heart rate over the past couple of months. It has been worse over the past 2 weeks. She did see her primary care doctor. Previously was on amlodipine and was taken off of this medication as she did lose weight and she has not had issues with her blood pressure. Since she had this medication change the symptoms have been more consistent. She did have a Holter monitor completed which was normal. Patient denies history of irregular heart rhythms. 5 AM this morning the patient had sudden onset of heart racing and it has been persistent. She admits to associated chest discomfort and shortness of breath. No history of coronary disease. No fever chills or cough. Denies fevers. No history of asthma or COPD. No history of DVT or PE. No calf pain or swelling. No other alleviating, precipitating or modifying factors - Related Data Home Medications Medication Instructions Recorded Confirmed Omeprazole [PriLOSEC] 20 mg PO DAILY 04/16/20 06/20/24 Ethinyl Estradiol/Drospirenone 1 tab PO DAILY 06/20/24 06/20/24 [Alida 28 Tablet] Lurasidone HCl 40 mg PO HS 06/20/24 06/20/24 Rosuvastatin [Crestor] 20 mg PO HS 06/20/24 06/20/24 Tirzepatide [Zepbound] 12.5 mg SQ FR 06/20/24 06/20/24 buPROPion XL [Wellbutrin XL] 300 mg PO DAILY 06/20/24 06/20/24 hydrOXYzine HCL [Atarax] 50 mg PO HS PRN 06/20/24 06/20/24 lamoTRIgine [LaMICtal] 150 mg PO HS 06/20/24 06/20/24 Previous Rx's Medication Instructions Recorded Apixaban [Eliquis] 5 mg PO BID #60 tab 06/22/24 Metoprolol Tartrate [Lopressor] 25 mg PO TID #90 tab 06/22/24 Allergies Allergy/AdvReac Type Severity Reaction Status Date / Time Penicillins Allergy Rash/Hives/ Verified 06/20/24 14:50 Swelling Review of Systems ROS Statement: Those systems with pertinent positive or pertinent negative responses have been documented in the HPI. ROS Other: All systems not noted in ROS Statement are negative. Past Medical History Past Medical History: Hyperlipidemia History of Any Multi-Drug Resistant Organisms: None Reported Past Surgical History: Section Past Anesthesia/Blood Transfusion Reactions: No Reported Reaction Past Psychological History: Anxiety, Bipolar, Depression Smoking Status: Never smoker Past Alcohol Use History: Occasional Past Drug Use History: None Reported General Exam Limitations: no limitations General appearance: alert, in no apparent distress Head exam: Present: atraumatic, normocephalic, normal inspection Eye exam: Present: normal appearance, PERRL, EOMI. Absent: scleral icterus, conjunctival injection, periorbital swelling ENT exam: Present: normal exam, mucous membranes moist Neck exam: Present: normal inspection. Absent: tenderness, meningismus, lymphadenopathy Respiratory exam: Present: normal lung sounds bilaterally. Absent: respiratory distress, wheezes, rales, rhonchi, stridor Cardiovascular Exam: Present: normal rhythm, tachycardia, normal heart sounds. Absent: systolic murmur, diastolic murmur, rubs, gallop, clicks GI/Abdominal exam: Present: soft, normal bowel sounds. Absent: distended, tenderness, guarding, rebound, rigid Extremities exam: Present: normal inspection, full ROM, normal capillary refill. Absent: tenderness, pedal edema, joint swelling, calf tenderness Back exam: Present: normal inspection Neurological exam: Present: alert, oriented X3, CN II-XII intact Psychiatric exam: Present: normal affect, normal mood Skin exam: Present: warm, dry, intact, normal color. Absent: rash Course Vital Signs 06/20/24 06/20/24 06/20/24 10:32 10:48 11:29 Temperature 98.4 F Pulse Rate 125 H 123 H Pulse Rate [ 122 H Hha ] Respiratory 18 20 Rate Blood Pressure 112/75 119/83 Blood Pressure [Left Arm] O2 Sat by Pulse 98 99 Oximetry 06/20/24 06/20/24 06/20/24 13:07 14:33 15:03 Temperature 97.7 F Pulse Rate 125 H 126 H Pulse Rate [ 110 H Hha ] Respiratory 18 16 18 Rate Blood Pressure 116/94 107/78 Blood Pressure 94/65 [Left Arm] O2 Sat by Pulse 100 98 97 Oximetry 06/20/24 17:33 Temperature 98.0 F Pulse Rate 131 H Pulse Rate [ Hha ] Respiratory 18 Rate Blood Pressure 100/78 Blood Pressure [Left Arm] O2 Sat by Pulse 98 Oximetry Medical Decision Making - Medical Decision Making Was pt. sent in by a medical professional or institution (, JOSEPH, KINDERGARTEN ASSISTANT, urgent care, hospital, or fpc...) When possible be specific @ -No Did you speak to anyone other than the patient for history (EMS, parent, family, police, friend...)? What history was obtained from this source @ -No Did you review nursing and triage notes (agree or disagree)? Why? @ -I reviewed and agree with nursing and triage notes Were old charts reviewed (outside hosp., previous admission, EMS record, old EKG, old radiological studies, urgent care reports/EKG's, fpc records)? Report findings @ -No old charts were reviewed Differential Diagnosis (chest pain, altered mental status, abdominal pain women, abdominal pain men, vaginal bleeding, weakness, fever, dyspnea, syncope, headache, dizziness, GI bleed, back pain, seizure, CVA, palpatations, mental health, musculoskeletal)? @ -Differential Palpitations Ventricular arrhythmias, atrial arrhythmias, myocardial infarction, anemia, thyrotoxicosis, electrolyte imbalance, hypokalemia, pulmonary embolism, pulmonary disease, drugs, alcohol, anxiety, stress.... This is not meant to be an all-inclusive list. EKG interpreted by me (3pts min.). @ -Yes and demonstrates atrial flutter vs junctional tachycardia with a rate of 123. QRS 100. QTc of 379. Regular rhythm. X-rays interpreted by me (1pt min.). @ -yes which demonstrates no acute process CT interpreted by me (1pt min.). @ -None done U/S interpreted by me (1pt. min.). @ -None done What testing was considered but not performed or refused? (CT, X-rays, U/S, labs)? Why? @ -None What meds were considered but not given or refused? Why? @ -None Did you discuss the management of the patient with other professionals (professionals i.e. , JOSEPH, KINDERGARTEN ASSISTANT, lab, RT, psych nurse, clinical social work aide, wallpaper scraper, teacher, hazard mitigation officer, telephonic case manager)? Give summary @ -Spoke with Dr. Enriquez for admission Was smoking cessation discussed for >3mins.? @ -No Was critical care preformed (if so, how long)? @ -No Were there social determinants of health that impacted care today? How? (Homelessness, low income, unemployed, alcoholism, drug addiction, transportation, low edu. Level, literacy, decrease access to med. care, correction, rehab)? @ -No Was there de-escalation of care discussed even if they declined (Discuss DNR or withdrawal of care, Hospice)? DNR status @ -No What co-morbidities impacted this encounter? (DM, HTN, Smoking, COPD, CAD, Cancer, CVA, ARF, Chemo, Hep., AIDS, mental health diagnosis, sleep apnea, morb id obesity)? @ -None Was patient admitted / discharged? Hospital course, mention meds given and rou te, prescriptions, significant lab abnormalities, going to OR and other pertinent info. @ -On arrival patient was seen and evaluated in room 18. Thorough history and physical exam was performed. Patient placed on continuous pulse ox and cardiac monitoring. Laboratory studies are conducted. Chest x-ray was performed. Patient was given a dose of metoprolol. Twelve-lead EKG is concerning for a trial flutter versus junctional tachycardia. Recommended admission for which patient was agreeable. Patient was admitted to the floor in stable condition Undiagnosed new problem with uncertain prognosis? @ -No Drug Therapy requiring intensive monitoring for toxicity (Heparin, Nitro, Insulin, Cardizem)? @ -No Were any procedures done? @ -No Diagnosis/symptom? @ -Acute palpitations, new onset a flutter Acute, or Chronic, or Acute on Chronic? @ -Acute Uncomplicated (without systemic symptoms) or Complicated (systemic symptoms)? @ -Complicated Side effects of treatment? @ -No Exacerbation, Progression, or Severe Exacerbation? @ -No Poses a threat to life or bodily function? How? (Chest pain, USA, NH, pneumonia, PE, COPD, DKA, ARF, appy, cholecystitis, CVA, Diverticulitis, Homicidal, Suicidal, threat to staff... and all critical care pts) @ -No - Lab Data Result diagrams: 06/21/24 07:32 06/21/24 07:32 Lab Results 06/20/24 06/20/24 06/20/24 Range/Units 10:57 10:57 10:57 WBC 7.18 (4.50-10.00) 10*3/uL RBC 4.45 (4.10-5.20) 10*6/uL Hgb 13.1 (12.0-15.0) g/dL Hct 37.6 (37.2-46.3) % MCV 84.5 (80.0-97.0) fL MCH 29.4 (27.0-32.0) pg MCHC 34.8 (32.0-37.0) g/dL Plt Count 279 (140-440) 10*3/uL MPV 10.0 (9.5-12.2) fL Immature Gran % (Auto) 0.1 % Neutrophils % 48.9 % Lymphocytes % 44.0 % Monocytes % 5.6 % Eosinophils % 1.0 % Basophils % 0.4 % Immature Gran # 0.01 (0.00-0.04) 10*3/uL Neutrophils # 3.51 (1.80-7.70) 10*3/uL Lymphocytes # 3.16 (0.90-5.00) 10*3/uL Monocytes # 0.40 (0.20-1.00) 10*3/uL Eosinophils # 0.07 (0.04-0.35) 10*3/uL Basophils # 0.03 (0.00-0.10) 10*3/uL PT 11.0 (10.0-12.5) sec INR 1.0 (<1.2) APTT 24.1 (22.0-30.0) sec D-Dimer 0.27 (<0.60) mg/L FEU Sodium 136 L (137-145) mmol/L Potassium 3.8 (3.5-5.1) mmol/L Chloride 102 (98-107) mmol/L Carbon Dioxide 18 L (22-30) mmol/L Anion Gap 16 mmol/L BUN 12 (7-17) mg/dL Creatinine 1.01 (0.52-1.04) mg/dL Est GFR (CKD-EPI)AfAm 77 (>60 ml/min/1.73 sqM) Est GFR (CKD-EPI)NonAf 67 (>60 ml/min/1.73 sqM) Glucose 73 L (74-99) mg/dL Calcium 10.3 H (8.4-10.2) mg/dL Magnesium 1.9 (1.6-2.3) mg/dL Total Bilirubin 0.6 (0.2-1.3) mg/dL AST 21 (14-36) U/L ALT 20 (4-34) U/L Alkaline Phosphatase 96 (38-126) U/L Troponin I (0.000-0.034) ng/mL Total Protein 7.0 (6.3-8.2) g/dL Albumin 4.6 (3.5-5.0) g/dL TSH 1.600 (0.465-4.680) mIU/L 06/20/24 Range/Units 10:57 WBC (4.50-10.00) 10*3/uL RBC (4.10-5.20) 10*6/uL Hgb (12.0-15.0) g/dL Hct (37.2-46.3) % MCV (80.0-97.0) fL MCH (27.0-32.0) pg MCHC (32.0-37.0) g/dL Plt Count (140-440) 10*3/uL MPV (9.5-12.2) fL Immature Gran % (Auto) % Neutrophils % % Lymphocytes % % Monocytes % % Eosinophils % % Basophils % % Immature Gran # (0.00-0.04) 10*3/uL Neutrophils # (1.80-7.70) 10*3/uL Lymphocytes # (0.90-5.00) 10*3/uL Monocytes # (0.20-1.00) 10*3/uL Eosinophils # (0.04-0.35) 10*3/uL Basophils # (0.00-0.10) 10*3/uL PT (10.0-12.5) sec INR (<1.2) APTT (22.0-30.0) sec D-Dimer (<0.60) mg/L FEU Sodium (137-145) mmol/L Potassium (3.5-5.1) mmol/L Chloride (98-107) mmol/L Carbon Dioxide (22-30) mmol/L Anion Gap mmol/L BUN (7-17) mg/dL Creatinine (0.52-1.04) mg/dL Est GFR (CKD-EPI)AfAm (>60 ml/min/1.73 sqM) Est GFR (CKD-EPI)NonAf (>60 ml/min/1.73 sqM) Glucose (74-99) mg/dL Calcium (8.4-10.2) mg/dL Magnesium (1.6-2.3) mg/dL Total Bilirubin (0.2-1.3) mg/dL AST (14-36) U/L ALT (4-34) U/L Alkaline Phosphatase (38-126) U/L Troponin I <0.012 (0.000-0.034) ng/mL Total Protein (6.3-8.2) g/dL Albumin (3.5-5.0) g/dL TSH (0.465-4.680) mIU/L Disposition Clinical Impression: New onset atrial flutter Disposition: ADMITTED IP TO THIS [facility] Condition: Stable Is patient prescribed a controlled substance at d/c from ED?: No Time of Disposition: 14:28 Decision to Admit Reason: Admit from EC Decision Date: 06/20/24 Decision Time: 14:28
[2024-06-20] MEDS ORDERED: hydrOXYzine HCL 25 MG TAB PO PRN (15:03)
--- NOTE | 2024-06-20 15:41 | P.HPIM ---
History of Present Illness H&P Date: 06/20/24 Patient is a 48-year-old female with past medical history of hyperlipidemia, hypertension, bipolar, depression, anxiety who presented to the ER with elevated heart rate. She has been noticing elevated heart rates over the past several months with recent worsening approximately over the past 2 weeks. 06/20 she woke up from sensation of her heart racing with associated SOB and chest discomfort. Not present during my examination. Patient reports that she saw her PCP and had a Holter monitor for 1 week that resulted as normal. Patient denies any history of heart attacks, strokes. She denies associated fevers, chills, URI symptoms In the ER she was afebrile with heart rate in 120s, BP 112/75, satting well on room air. Lab work significant for normal CBC and coagulation panel, sodium 136, bicarb 18, normal potassium, chloride, creatinine, GFR, calcium elevated 10.3, glucose low 73, troponin negative, TSH normal 1.6, liver profile normal. EKG showed a flutter, QTc 379. She was provided with Lopressor IV 2.5 once, will be admitted under observation with cardiology consult. She has no personal history of CAD, her dad had A-fib, denies alcohol use, smoking, drug use. Pertinent positives and negatives as discussed in HPI, a complete review of systems performed and all other systems are negative. Patient seen and examined at bedside. Vital signs reviewed General: nontoxic, no distress, appears at stated age Derm: warm, dry Head: atraumatic, normocephalic, symmetric Eyes: EOMI, no lid lag, anicteric sclera, pupils equal round reactive to light ENT: Nose and ears atraumatic Neck: No thyromegaly, supple Mouth: no lip lesion, mucus membranes moist Cardiovascular: S1S2 reg, tachycardic, no murmur, no edema Lungs: clear to auscultation bilateral, no rhonchi, no rales, no wheeze, no accessory muscle use Abdominal: soft, nontender to palpation, no guarding, no appreciable organomegaly Ext: no gross muscle atrophy, muscle strength muscle strength 5 out of 5 in all 4 extremities, no contractures Neuro: CN II-XII grossly intact Psych: Alert, oriented, appropriate affect Assessment/Plan: A flutter - Start Lopressor 25 twice daily - Cardiology consulted, appreciate recommendations -Continue telemetry -TSH normal Hyperlipidemia GERD Bipolar, depression with anxiety - Continue home medications with Wellbutrin 300 mg p.o. daily, Atarax 50 mg p.o. nightly as needed, lamotrigine 150 mg p.o. nightly, lurasidone 40 mg p.o. nightly, omeprazole 20 mg p.o. daily, rosuvastatin 20 mg p.o. nightly The patient is admitted with an anticipated less than 2 midnight stay as observation status for evaluation of a flutter. CODE STATUS: Full code DVT prophylaxis: Lovenox Anticipated discharge date: TBD Anticipated discharge place: Home A total of 38 minutes was spent on the care of this complex patient more than 50% of the time was spent in counseling and care coordination. Past Medical History Past Medical History: Hyperlipidemia History of Any Multi-Drug Resistant Organisms: None Reported Past Surgical History: Section Past Anesthesia/Blood Transfusion Reactions: No Reported Reaction Past Psychological History: Anxiety, Bipolar, Depression Smoking Status: Never smoker Past Alcohol Use History: Occasional Past Drug Use History: None Reported Medications and Allergies Home Medications Medication Instructions Recorded Confirmed Type Omeprazole [PriLOSEC] 20 mg PO DAILY 04/16/20 06/20/24 History Ethinyl Estradiol/Drospirenone 1 tab PO DAILY 06/20/24 06/20/24 History [Alida 28 Tablet] Lurasidone HCl 40 mg PO HS 06/20/24 06/20/24 History Rosuvastatin [Crestor] 20 mg PO HS 06/20/24 06/20/24 History Tirzepatide [Zepbound] 12.5 mg SQ FR 06/20/24 06/20/24 History buPROPion XL [Wellbutrin XL] 300 mg PO DAILY 06/20/24 06/20/24 History hydrOXYzine HCL [Atarax] 50 mg PO HS PRN 06/20/24 06/20/24 History lamoTRIgine [LaMICtal] 150 mg PO HS 06/20/24 06/20/24 History Allergies Allergy/AdvReac Type Severity Reaction Status Date / Time Penicillins Allergy Rash/Hives/ Verified 06/20/24 14:50 Swelling Physical Exam Vitals: Vital Signs Temp Pulse Pulse Resp BP Pulse Ox 06/20/24 14:33 126 H 16 107/78 98 06/20/24 13:07 125 H 18 116/94 100 06/20/24 11:29 123 H 20 119/83 99 06/20/24 10:48 122 H 06/20/24 10:32 98.4 F 125 H 18 112/75 98 Intake and Output 06/20/24 06/20/24 06/20/24 06:59 14:59 22:59 Other: Weight 80.286 kg Results CBC & Chem 7: 06/20/24 10:57 06/20/24 10:57 Labs: Abnormal Lab Results - Last 24 Hours (Table) 06/20/24 Range/Units 10:57 Sodium 136 L (137-145) mmol/L Carbon Dioxide 18 L (22-30) mmol/L Glucose 73 L (74-99) mg/dL Calcium 10.3 H (8.4-10.2) mg/dL
[2024-06-20] MEDS: METOPROLOL TARTRATE 25 MG TAB PO SCH (15:45)
[2024-06-20] MEDS: LURASIDONE 40 MG TAB PO SCH (21:06)
[2024-06-20] MEDS: lamoTRIgine 25 MG TAB PO SCH (21:06)
[2024-06-20] MEDS: lamoTRIgine 100 MG TAB PO SCH (21:07)
[2024-06-20] MEDS: ATORVASTATIN 40 MG TAB PO SCH (21:07)
[2024-06-21] MEDS ORDERED: MIDAZOLAM 2 MG/2 ML VIAL IV PRN (08:41)
[2024-06-21] MEDS ORDERED: fentaNYL (PF) 50 MCG/ML 2 ML AMP IVP PRN (08:41)
[2024-06-21 08:49] LABS: Basophils # (A) 0.04 10*3/uL (0.00-0.10); Basophils % (A) 0.5 %; Eosinophils # (A) 0.14 10*3/uL (0.04-0.35); Eosinophils % (A) 1.9 %; HCT 38.6 % (37.2-46.3); HGB 12.9 g/dL (12.0-15.0); Lymphocytes # (A) 3.95 10*3/uL (0.90-5.00); Lymphocytes % (A) 53.5 %; MCH 28.5 pg (27.0-32.0); MCHC 33.4 g/dL (32.0-37.0); MCV 85.4 fL (80.0-97.0); Mean Platelet Volume 10.2 fL (9.5-12.2); Monocytes # (A) 0.38 10*3/uL (0.20-1.00); Monocytes % (A) 5.1 %; Neutrophils # (A) 2.86 10*3/uL (1.80-7.70); Neutrophils % (A) 38.9 %; Platelet Count 296 10*3/uL (140-440); RBC 4.52 10*6/uL (4.10-5.20); RDW 13.6 % (11.5-14.5); WBC 7.38 10*3/uL (4.50-10.00)
[2024-06-21 09:32] LABS: ALT 17 U/L (4-34); AST 17 U/L (14-36); African American GFR (CKD) 83 (>60 ml/min/1.73 sqM); Albumin 3.8 g/dL (3.5-5.0); Alkaline Phosphatase 84 U/L (38-126); Anion Gap 10 mmol/L; Blood Urea Nitrogen 11 mg/dL (7-17); Calcium 9.6 mg/dL (8.4-10.2); Carbon Dioxide 23 mmol/L (22-30); Chloride 106 mmol/L (98-107); Glucose 114 mg/dL (74-99); Non-African American GFR(CKD) 72 (>60 ml/min/1.73 sqM); Potassium 4.1 mmol/L (3.5-5.1); Sodium 139 mmol/L (137-145); Total Bilirubin 0.5 mg/dL (0.2-1.3); Total Protein 6.2 g/dL (6.3-8.2)
[2024-06-21 10:15] VITALS: RESP 18
[2024-06-21] MEDS: PANTOPRAZOLE 40 MG TABLET PO SCH (10:17)
[2024-06-21] MEDS: BENZOCAINE SPRAY 1 EACH MM SCH (10:17)
[2024-06-21] MEDS: APIXABAN 5 MG TAB PO SCH (10:17)
[2024-06-21] MEDS: buPROPion XL 300 MG TAB.ER.24H PO SCH (10:17)
--- NOTE | 2024-06-21 10:25 | P.CRDCN ---
History of Present Illness Consult date: 06/21/24 Reason for Consult (text): New onset supraventricular tachycardia History of present illness: This is a 48-year-old female patient of Dr. Camargo with past medical history of overweight, hypertension dyslipidemia, depression. We have been asked to evaluate the patient for new onset of supraventricular tachycardia. Patient complains of feeling hot, dizzy and lightheaded and elevated heart rate. She states her symptoms have been going on for couple months. She has been meaning to get in with Dr. Camargo and has an appointment next week. Patient was found to be in atrial flutter and has been started on Lopressor 25 mg twice daily. Blood pressure 98/62, heart rate 105, pulse ox 95% on room air. Dr. Winter discussed in detail findings and recommendations for ALPA and cardioversion tomorrow if patient does not convert to sinus rhythm. He is also discussed with the patient need for atrial flutter ablation which will be scheduled down the road. -EKG: #1 atrial flutter 123 bpm, #2 atrial flutter 75 bpm -Chest x-ray: No acute findings -Laboratory studies: CBC and D-dimer all within normal limits. TSH 1.6. Troponin negative x 3. Potassium 3.8, CO2 18, BUN 12 and creatinine 1.01. -Home cardiac medications: Crestor 20 mg daily. Patient is also on Zepbound. -Echocardiogram performed in the office on 09/02/2023 revealed EF 55 to 60% with mild concentric left ducal hypertrophy, mild mitral regurgitation, mild tricuspid regurgitation, normal PASP. Review Of Systems: At the time of my exam: CONSTITUTIONAL: Denies fever or chills. Reports lightheadedness and dizziness HEENT: Denies blurred vision, vision changes, or eye pain. Denies hemoptysis CARDIOVASCULAR: Denies chest pain. Denies orthopnea. Denies PND. Reports palpitations RESPIRATORY: Denies shortness of breath. GASTROINTESTINAL: Denies abdominal pain. Denies nausea or vomiting. HEMATOLOGIC: Denies bleeding disorders. GENITOURINARY: Denies any blood in urine. SKIN: Denies puritis. Denies rash. Physical examination: Gen: This is a 48-year-old female in no acute distress VS: reviewed HEENT: Head is atraumatic, normocephalic. Pupils equal, round. Sclerae is anicteric. NECK: Supple. No JVD. LUNGS: Clear to auscultation. No wheezes or rhonchi. No intercostal retractions. HEART: Regular rate and rhythm. Systolic murmur. ABDOMEN: Soft No tenderness. EXTREMITIES: No pedal edema. No calf tenderness. NEUROLOGICAL: Patient is awake, alert and oriented x3. Assessment: New onset typical atrial flutter with RVR, currently rate controlled Hypertension, currently on the hypotensive side Dyslipidemia Depression Overweight Plan: Resume patient's home cardiac medications Patient has been started on metoprolol 25 mg twice daily which will be continued Start patient on Eliquis 5 mg twice daily Obtain 2-D echocardiogram and Doppler study to assess cardiac structure and function 500 cc bolus N.p.o. after midnight If patient has not converted by tomorrow we will plan to do ALPA and cardioversion with Dr. Camargo. Further recommendations to follow based upon clinical course Thank you kindly for this consultation. Nurse practitioner note has been reviewed, I agree with documented findings and plan of care. Patient was seen and examined. Past Medical History Past Medical History: Hyperlipidemia History of Any Multi-Drug Resistant Organisms: None Reported Past Surgical History: Section Past Anesthesia/Blood Transfusion Reactions: No Reported Reaction Past Psychological History: Anxiety, Bipolar, Depression Smoking Status: Never smoker Past Alcohol Use History: Occasional Past Drug Use History: None Reported Medications and Allergies Home Medications Medication Instructions Recorded Confirmed Type Omeprazole [PriLOSEC] 20 mg PO DAILY 04/16/20 06/20/24 History Ethinyl Estradiol/Drospirenone 1 tab PO DAILY 06/20/24 06/20/24 History [Alida 28 Tablet] Lurasidone HCl 40 mg PO HS 06/20/24 06/20/24 History Rosuvastatin [Crestor] 20 mg PO HS 06/20/24 06/20/24 History Tirzepatide [Zepbound] 12.5 mg SQ FR 06/20/24 06/20/24 History buPROPion XL [Wellbutrin XL] 300 mg PO DAILY 06/20/24 06/20/24 History hydrOXYzine HCL [Atarax] 50 mg PO HS PRN 06/20/24 06/20/24 History lamoTRIgine [LaMICtal] 150 mg PO HS 06/20/24 06/20/24 History Allergies Allergy/AdvReac Type Severity Reaction Status Date / Time Penicillins Allergy Rash/Hives/ Verified 06/20/24 14:50 Swelling Physical Exam Vitals: Vital Signs Temp Pulse Pulse Resp BP BP Pulse Ox 06/21/24 03:40 98.3 F 104 H 16 98/62 95 06/20/24 17:33 98.0 F 131 H 18 100/78 98 06/20/24 15:03 97.7 F 110 H 18 94/65 97 06/20/24 14:33 126 H 16 107/78 98 06/20/24 13:07 125 H 18 116/94 100 06/20/24 11:29 123 H 20 119/83 99 06/20/24 10:48 122 H 06/20/24 10:32 98.4 F 125 H 18 112/75 98 Intake and Output 06/20/24 06/21/24 06/21/24 22:59 06:59 14:59 Other: Weight 80.286 kg 80.5 kg Results 06/21/24 07:32 06/21/24 07:32 Cardiac Enzymes 06/20/24 06/20/24 06/20/24 Range/Units 10:57 10:57 14:50 AST 21 (14-36) U/L Troponin I <0.012 <0.012 (0.000-0.034) ng/mL 06/20/24 Range/Units 18:40 AST (14-36) U/L Troponin I <0.012 (0.000-0.034) ng/mL Coagulation 06/20/24 Range/Units 10:57 PT 11.0 (10.0-12.5) sec APTT 24.1 (22.0-30.0) sec CBC 06/20/24 Range/Units 10:57 WBC 7.18 (4.50-10.00) 10*3/uL RBC 4.45 (4.10-5.20) 10*6/uL Hgb 13.1 (12.0-15.0) g/dL Hct 37.6 (37.2-46.3) % Plt Count 279 (140-440) 10*3/uL Comprehensive Metabolic Panel 06/20/24 Range/Units 10:57 Sodium 136 L (137-145) mmol/L Potassium 3.8 (3.5-5.1) mmol/L Chloride 102 (98-107) mmol/L Carbon Dioxide 18 L (22-30) mmol/L BUN 12 (7-17) mg/dL Creatinine 1.01 (0.52-1.04) mg/dL Glucose 73 L (74-99) mg/dL Calcium 10.3 H (8.4-10.2) mg/dL AST 21 (14-36) U/L ALT 20 (4-34) U/L Alkaline Phosphatase 96 (38-126) U/L Total Protein 7.0 (6.3-8.2) g/dL Albumin 4.6 (3.5-5.0) g/dL Current Medications Generic Name Dose Route Start Last Admin Trade Name Freq PRN Reason Stop Dose Admin Atorvastatin Calcium 40 mg 06/20/24 21:00 06/20/24 21:07 Atorvastatin 40 Mg Tab PO 40 mg HS ABDIAZIZ Administration Bupropion HCl 300 mg 06/21/24 09:00 Bupropion Xl 300 Mg Tab.Er.24h PO DAILY ABDIAZIZ Hydroxyzine HCl 50 mg 06/20/24 15:03 Hydroxyzine Hcl 25 Mg Tab PO HS PRN SLEEP Lamotrigine 100 mg 06/20/24 21:00 06/20/24 21:07 Lamotrigine 100 Mg Tab PO 100 mg HS ABDIAZIZ Administration Lamotrigine 50 mg 06/20/24 21:00 06/20/24 21:06 Lamotrigine 25 Mg Tab PO 50 mg HS ABDIAZIZ Administration Lurasidone HCl 40 mg 06/20/24 21:00 06/20/24 21:06 Lurasidone 40 Mg Tab PO 40 mg HS ABDIAZIZ Administration Metoprolol Tartrate 25 mg 06/20/24 15:39 06/20/24 21:06 Metoprolol Tartrate 25 Mg Tab PO 25 mg BID ABDIAZIZ Administration Naloxone HCl 0.2 mg 06/20/24 14:29 Naloxone 0.4 Mg/Ml 1 Ml Vial IV Q2M PRN Opioid Reversal Pantoprazole Sodium 40 mg 06/21/24 09:00 Pantoprazole 40 Mg Tablet PO DAILY ABDIAZIZ Intake and Output 06/20/24 06/21/24 06/21/24 22:59 06:59 14:59 Other: Weight 80.286 kg 80.5 kg 06/20/24 10:57 06/20/24 10:57
[2024-06-21] MEDS: SODIUM CHLORIDE 0.9% 500 ML 500 ML IV ONE (10:27)
--- NOTE | 2024-06-21 11:09 | P.PN ---
Subjective Progress Note Date: 06/21/24 Hospital Course: Patient is a 48-year-old female with past medical history of hyperlipidemia, h ypertension, bipolar, depression, anxiety who presented to the ER with elevated heart rate. She has been noticing elevated heart rates over the past several months with recent worsening approximately over the past 2 weeks. 06/20 she woke up from sensation of her heart racing with associated SOB and chest discomfort. Not present during my examination. Patient reports that she saw her PCP and had a Holter monitor for 1 week that resulted as normal. Patient denies any history of heart attacks, strokes. She denies associated fevers, chills, URI symptoms In the ER she was afebrile with heart rate in 120s, BP 112/75, satting well on room air. Lab work significant for normal CBC and coagulation panel, sodium 136, bicarb 18, normal potassium, chloride, creatinine, GFR, calcium elevated 10.3, glucose low 73, troponin negative, TSH normal 1.6, liver profile normal. EKG showed a flutter, QTc 379. She was provided with Lopressor IV 2.5 once, will be admitted under observation with cardiology consult. She has no personal history of CAD, her dad had A-fib, denies alcohol use, smoking, drug use. 06/21: Patient still in a flutter, heart rate goes up to 120s, cardiology is planning possible cardioversion, patient started on Eliquis and continued on metoprolol tartrate 25 twice daily, will switch to inpatient for need for possible cardioversion. Patient reports that she is feeling dizzy, experiences palpitations, otherwise no complaints Pertinent positives and negatives as discussed above, a complete review of systems was performed and all other systems are negative. Vitals Signs Reviewed. General: [nontoxic], [no distress], [appears at stated age] Derm: [warm], [dry] Head: [atraumatic], [normocephalic], [symmetric] Eyes: [EOMI], [no lid lag], [anicteric sclera] Mouth: [no lip lesion], [mucus membranes moist] Cardiovascular: [S1S2 reg], tachycardic, [no murmur] Lungs: [CTA bilateral], [no rhonchi, no rales] , [no accessory muscle use] Abdominal: [soft], [ nontender to palpation], [no guarding], [no appreciable organomegaly] Ext: [no gross muscle atrophy], [no edema], [no contractures] Neuro: [ CN II-XI grossly intact], [no focal neuro deficits] Psych: [Alert], [oriented], [appropriate affect] Assessment and Plan: New onset A flutter with RVR - Continue Lopressor 25 twice daily - Cardiology consulted, appreciate recommendations -Started on Eliquis 5 mg twice daily -Provided with IVF bolus 500 cc per cardiology, n.p.o. at midnight, possible ALPA and cardioversion if not converted by tomorrow -Continue telemetry -TSH normal Hyperlipidemia GERD Bipolar, depression with anxiety - Continue home medications with Wellbutrin 300 mg p.o. daily, Atarax 50 mg p.o. nightly as needed, lamotrigine 150 mg p.o. nightly, lurasidone 40 mg p.o. nightly, omeprazole 20 mg p.o. daily, rosuvastatin 20 mg p.o. nightly I have reviewed the following cardiology consultants notes: I have reviewed the results of the following tests: CBC and BMP I have ordered the following tests: I have discussed the care of this patient with the following independent historian: RN I have independently interpreted the following test below: As above I have discussed the management of this patient with the following physician: Cardiology, discussed initiation of anticoagulation and plan for possible card ioversion CODE STATUS: Full code DVT prophylaxis: Nasrin Anticipated discharge date: Objective - Vital Signs Vital signs: Vital Signs Temp 98.3 F 06/21/24 03:40 Pulse 114 H 06/21/24 10:36 Resp 18 06/21/24 10:12 BP 93/61 06/21/24 10:36 Pulse Ox 98 06/21/24 10:12 FiO2 Intake & Output 06/20/24 06/21/24 06/21/24 18:59 06:59 18:59 Weight 80.286 kg 80.5 kg Other: # Voids 1 - Labs CBC & Chem 7: 06/21/24 07:32 06/21/24 07:32 Labs: Abnormal Lab Results - Last 24 Hours (Table) 06/20/24 06/21/24 Range/Units 10:57 07:32 Sodium 136 L (137-145) mmol/L Carbon Dioxide 18 L (22-30) mmol/L Glucose 73 L 114 H (74-99) mg/dL Calcium 10.3 H (8.4-10.2) mg/dL Total Protein 6.2 L (6.3-8.2) g/dL
[2024-06-21] MEDS: ACETAMINOPHEN TAB 325 MG TAB PO PRN (18:23)
[2024-06-22 13:03] VITALS: TEMP 98.2
[2024-06-22 13:04] VITALS: BP 93/61; PULSE 70
--- NOTE | 2024-06-22 13:11 | P.PN ---
Subjective Progress Note Date: 06/22/24 Reason for Consult (text): New onset supraventricular tachycardia History of present illness: This is a 48-year-old female patient of Dr. Camargo with past medical history of overweight, hypertension dyslipidemia, depression. We have been asked to evalua te the patient for new onset of supraventricular tachycardia. Patient complains of feeling hot, dizzy and lightheaded and elevated heart rate. She states her symptoms have been going on for couple months. She has been meaning to get in with Dr. Camargo and has an appointment next week. Patient was found to be in atrial flutter and has been started on Lopressor 25 mg twice daily. Blood pressure 98/62, heart rate 105, pulse ox 95% on room air. Dr. Winter discussed in detail findings and recommendations for ALPA and cardioversion tomorrow if patient does not convert to sinus rhythm. He is also discussed with the patient need for atrial flutter ablation which will be scheduled down the road. -EKG: #1 atrial flutter 123 bpm, #2 atrial flutter 75 bpm -Chest x-ray: No acute findings -Laboratory studies: CBC and D-dimer all within normal limits. TSH 1.6. Troponin negative x 3. Potassium 3.8, CO2 18, BUN 12 and creatinine 1.01. -Home cardiac medications: Crestor 20 mg daily. Patient is also on Zepbound. -Echocardiogram performed in the office on 09/02/2023 revealed EF 55 to 60% with mild concentric left ducal hypertrophy, mild mitral regurgitation, mild tricuspid regurgitation, normal PASP. Addendum from Dr. Winter: Typical atrial flutter with RVR, symptomatic Plan start Eliquis Start rate control medications Avoid antiarrhythmic drugs Proceed with atrial flutter ablation in 3 to 4 weeks Reassess Ashwin Vasc score 5/9 Patient seen and examined. Patient seen and examined. Patient has ambulated in the hallway and her heart rate goes up to 130s and remains in atrial flutter. At rest her heart rate is in the 90s. She still feels dizzy when she moves from a sitting to a standing position. Blood pressure 95/61, heart rate 60s to 90s, pulse ox 100% on room air. Physical examination: Gen: This is a 48-year-old female in no acute distress VS: reviewed HEENT: Head is atraumatic, normocephalic. Pupils equal, round. Sclerae is anicteric. NECK: Supple. No JVD. LUNGS: Clear to auscultation. No wheezes or rhonchi. No intercostal retractions. HEART: Regular rate and rhythm. Systolic murmur. ABDOMEN: Soft No tenderness. EXTREMITIES: No pedal edema. No calf tenderness. NEUROLOGICAL: Patient is awake, alert and oriented x3. Assessment: New onset typical atrial flutter with RVR, currently rate controlled at rest Hypertension, currently on the hypotensive side Dyslipidemia Depression Overweight Plan: Continue patient's home cardiac medications Increase frequency of metoprolol 25 mg to 3 times daily Continue patient on Eliquis 5 mg twice daily Patient is cleared for discharge from cardiology perspective and arrangements will be made for a flutter ablation as an outpatient. Nurse practitioner note has been reviewed, I agree with documented findings and plan of care. Patient was seen and examined. Objective - Vital Signs Vital signs: Vital Signs Temp 98.2 F 06/22/24 12:00 Pulse 70 06/22/24 12:00 Resp 18 06/22/24 12:00 BP 93/61 06/22/24 12:00 Pulse Ox 99 06/22/24 12:00 FiO2 Intake & Output 06/21/24 06/22/24 06/22/24 18:59 06:59 18:59 Intake Total 598 257 Balance 598 257 Weight 81.1 kg Intake: IV 20 0.9 20 Oral 598 237 Other: # Voids 3 1 - Labs CBC & Chem 7: 06/21/24 07:32 06/21/24 07:32
--- NOTE | 2024-06-22 14:14 | P.DS ---
Providers Date of admission: 06/20/24 14:36 Attending physician: Bobby Cronin Consults: 06/20/24 14:29 Consult Physician Urgent Consulting Provider: [facility] Consult Reason/Comments: new onset supraventricular tachycardia Do you want consulting provider notified?: Yes Primary care physician: Saran Salgado Hospital Course: Discharge Diagnosis: New onset a flutter with RVR, now rate controlled History of hypertension Dyslipidemia GERD Bipolar, depression, anxiety Hospital Course: Patient is a 48-year-old female with past medical history of hyperlipidemia, hypertension, bipolar, depression, anxiety who presented to the ER with elevated heart rate. She has been noticing elevated heart rates over the past several months with recent worsening approximately over the past 2 weeks. 06/20 she woke up from sensation of her heart racing with associated SOB and chest discomfort. Not present during my examination. Patient reports that she saw her PCP and had a Holter monitor for 1 week that resulted as normal. Patient denies any history of heart attacks, strokes. She denies associated fevers, chills, URI symptoms In the ER she was afebrile with heart rate in 120s, BP 112/75, satting well on room air. Lab work significant for normal CBC and coagulation panel, sodium 136, bicarb 18, normal potassium, chloride, creatinine, GFR, calcium elevated 10.3, glucose low 73, troponin negative, TSH normal 1.6, liver profile normal. EKG showed a flutter, QTc 379. She was provided with Lopressor IV 2.5 once, will be admitted under observation with cardiology consult. She has no personal history of CAD, her dad had A-fib, denies alcohol use, smoking, drug use. 06/21: Patient still in a flutter, heart rate goes up to 120s, cardiology is planning possible cardioversion, patient started on Eliquis and continued on metoprolol tartrate 25 twice daily, will switch to inpatient for need for possible cardioversion. Patient reports that she is feeling dizzy, experiences palpitations, otherwise no complaints 06/22: Patient is rate controlled, no plans for cardioversion, patient to be discharged on increased dose of Lopressor 25 3 times daily instead of twice daily, Eliquis 5 mg twice daily,follow-up appointment scheduled for ablation, cleared by cardiology. Patient seen and examined at bedside.[] Vital signs reviewed and stable. General: [nontoxic], [no distress], [appears at stated age] Derm: [warm], [dry] Head: [atraumatic], [normocephalic], [symmetric] Eyes: [EOMI], [no lid lag], [anicteric sclera] Mouth: [no lip lesion], [mucus membranes moist] Cardiovascular: [S1S2 reg], [no murmur] Lungs: [CTA bilateral], [no rhonchi, no rales] , [no accessory muscle use] Abdominal: [soft], [ nontender to palpation], [no guarding], [no appreciable organomegaly] Ext: [no gross muscle atrophy], [no edema], [no contractures] Neuro: [ CN II-XI grossly intact], [no focal neuro deficits] Psych: [Alert], [oriented], [appropriate affect] A total of 40 minutes of time were spent preparing this complex discharge summary. Patient was discharged on 06/22/2024. Patient Condition at Discharge: Stable Plan - Discharge Summary Discharge Rx Participant: No New Discharge Prescriptions: New Metoprolol Tartrate [Lopressor] 25 mg PO TID #90 tab Apixaban [Eliquis] 5 mg PO BID #60 tab Continue Omeprazole [PriLOSEC] 20 mg PO DAILY hydrOXYzine HCL [Atarax] 50 mg PO HS PRN PRN Reason: SLEEP Lurasidone HCl 40 mg PO HS Ethinyl Estradiol/Drospirenone [Alida 28 Tablet] 1 tab PO DAILY buPROPion XL [Wellbutrin XL] 300 mg PO DAILY Rosuvastatin [Crestor] 20 mg PO HS lamoTRIgine [LaMICtal] 150 mg PO HS Tirzepatide [Zepbound] 12.5 mg SQ FR Discharge Medication List Omeprazole [PriLOSEC] 20 mg PO DAILY 04/16/20 [History] Ethinyl Estradiol/Drospirenone [Alida 28 Tablet] 1 tab PO DAILY 06/20/24 [History] Lurasidone HCl 40 mg PO HS 06/20/24 [History] Rosuvastatin [Crestor] 20 mg PO HS 06/20/24 [History] Tirzepatide [Zepbound] 12.5 mg SQ FR 06/20/24 [History] buPROPion XL [Wellbutrin XL] 300 mg PO DAILY 06/20/24 [History] hydrOXYzine HCL [Atarax] 50 mg PO HS PRN 06/20/24 [History] lamoTRIgine [LaMICtal] 150 mg PO HS 06/20/24 [History] Apixaban [Eliquis] 5 mg PO BID #60 tab 06/22/24 [Rx] Metoprolol Tartrate [Lopressor] 25 mg PO TID #90 tab 06/22/24 [Rx] Follow up Appointment(s)/Referral(s): Fransisco Camargo MD [STAFF PHYSICIAN] - 1 Week (Has appointment scheduled for next week) Saran Salgado MD [Primary Care Provider] - 06/27/24 12:15 pm Patient Instructions/Handouts: Atrial Flutter (DC) Activity/Diet/Wound Care/Special Instructions: Please, follow-up with your primary care physician, nutrition associate as discussed, take your medications as prescribed Discharge Disposition: HOME SELF-CARE
[2024-06-22] MEDS: METOPROLOL TARTRATE 25 MG TAB PO SCH (15:50)
== END 2024-06-22 16:08 | disposition home or self-care (01) ==
LOC: EC 10:28 → UNDOADMOB 14:35 → 3SCARD 14:35 → OBSVTOIN 14:36 → INTOOBSV 14:36 → OBSVTOIN 14:37 → INTOOBSV 14:37 → 3SCARD 14:37 → UNDODISIN 06-22 16:08
PROVIDERS: ADMIT Student in an Organized Health Care Education/Training Program; ATTEND Student in an Organized Health Care Education/Training Program
DX: I48.3 Typical atrial flutter (principal); E78.5 Hyperlipidemia, unspecified; I10 Essential (primary) hypertension; F31.9 Bipolar disorder, unspecified; F41.9 Anxiety disorder, unspecified; K21.9 Gastro-esophageal reflux disease without esophagitis; E66.3 Overweight; Z68.28 Body mass index [BMI] 28.0-28.9, adult; Z79.899 Other long term (current) drug therapy; Z88.0 Allergy status to penicillin
CPT/HCPCS: 96374; 99285; 36415; 93005; 85379; 80053 ×2; 84443; 83735; 84484; 85025 ×2; 85610; 85730; 71046; G0378 ×3

== ENCOUNTER 2024-07-04 10:49 | Observation (INO) | payer BC ==
--- NOTE | 2024-07-04 12:24 | ED ---
Chest Pain HPI - General Chief Complaint: Chest Pain Stated Complaint: Dizziness Time Seen by Provider: 07/04/24 11:13 Source: patient, RN notes reviewed Mode of arrival: wheelchair Limitations: no limitations - History of Present Illness Initial Comments: 48-year-old female presents emerged from chief complaint of dizziness, lightheadedness and palpitations. Patient states she feels like she is having issues with her atrial flutter. Patient states that she is worse with some movements she denies any current chest pain she states she had some pressure earlier with palpitations. Patient is on anticoagulation and metoprolol. Patient denies any fevers or chills she states that she did have some recent vomiting. - Related Data Home Medications Medication Instructions Recorded Confirmed Omeprazole [PriLOSEC] 20 mg PO DAILY 04/16/20 07/04/24 Ethinyl Estradiol/Drospirenone 1 tab PO DAILY 06/20/24 07/04/24 [Alida 28 Tablet] Lurasidone HCl 40 mg PO HS 06/20/24 07/04/24 Rosuvastatin [Crestor] 20 mg PO HS 06/20/24 07/04/24 Tirzepatide [Zepbound] 12.5 mg SQ FR 06/20/24 07/04/24 buPROPion XL [Wellbutrin XL] 300 mg PO DAILY 06/20/24 07/04/24 hydrOXYzine HCL [Atarax] 50 mg PO HS PRN 06/20/24 07/04/24 lamoTRIgine [LaMICtal] 150 mg PO HS 06/20/24 07/04/24 Previous Rx's Medication Instructions Recorded Apixaban [Eliquis] 5 mg PO BID #60 tab 06/22/24 Metoprolol Tartrate [Lopressor] 25 mg PO TID #90 tab 06/22/24 Allergies Allergy/AdvReac Type Severity Reaction Status Date / Time Penicillins Allergy Rash/Hives/ Verified 07/04/24 14:57 Swelling Review of Systems ROS Statement: Those systems with pertinent positive or pertinent negative responses have been documented in the HPI. ROS Other: All systems not noted in ROS Statement are negative. EKG Findings - EKG Comments: EKG Findings:: EKG performed at 11: 00 sinus rhythm rate 68 MA 191 QRS 92 QT/QTc 392/410 - EKG Results: EKG: interpreted by MICHI Past Medical History Past Medical History: Atrial Flutter, Hyperlipidemia History of Any Multi-Drug Resistant Organisms: None Reported Past Surgical History: Section Past Anesthesia/Blood Transfusion Reactions: No Reported Reaction Past Psychological History: Anxiety, Bipolar, Depression Smoking Status: Never smoker Past Alcohol Use History: Occasional Past Drug Use History: None Reported General Exam Limitations: no limitations General appearance: alert, in no apparent distress Head exam: Present: atraumatic, normocephalic, normal inspection Eye exam: Present: normal appearance, PERRL, EOMI. Absent: scleral icterus, conjunctival injection, periorbital swelling ENT exam: Present: normal exam, normal oropharynx, mucous membranes moist Neck exam: Present: normal inspection, full ROM. Absent: tenderness, meningismus, lymphadenopathy Respiratory exam: Present: normal lung sounds bilaterally. Absent: respiratory distress, wheezes, rales, rhonchi, stridor Cardiovascular Exam: Present: regular rate, normal rhythm, normal heart sounds. Absent: systolic murmur, diastolic murmur, rubs, gallop, clicks GI/Abdominal exam: Present: soft, normal bowel sounds. Absent: distended, tenderness, guarding, rebound, rigid Course Vital Signs 07/04/24 07/04/24 07/04/24 10:51 12:24 12:58 Temperature 98.0 F Pulse Rate 69 70 Pulse Rate [ 68 Camera Operator ] Respiratory 16 16 16 Rate Blood Pressure 123/84 117/99 O2 Sat by Pulse 100 97 Oximetry 07/04/24 14:29 Temperature Pulse Rate 62 Pulse Rate [ Camera Operator ] Respiratory 15 Rate Blood Pressure 132/77 O2 Sat by Pulse 100 Oximetry Chest Pain MDM - MDM Was pt. sent in by a medical professional or institution (, PA, SERVICE EMPLOYEE, urgent care, hospital, or snf...) When possible be specific @ -No Did you speak to anyone other than the patient for history (EMS, parent, family, police, friend...)? What history was obtained from this source @ -No Did you review nursing and triage notes (agree or disagree)? Why? @ -I reviewed and agree with nursing and triage notes Were old charts reviewed (outside hosp., previous admission, EMS record, old EKG, old radiological studies, urgent care reports/EKG's, snf records)? Report findings @ -No old charts were reviewed Differential Diagnosis (chest pain, altered mental status, abdominal pain women, abdominal pain men, vaginal bleeding, weakness, fever, dyspnea, syncope, headache, dizziness, GI bleed, back pain, seizure, CVA, palpatations, mental health, musculoskeletal)? @ -Differential Chest Pain: Stable Angina, Unstable Angina, STEMI, NSTEMI Aortic Dissection, Pneumothorax, Musculoskeletal, Esophageal Spasm GERD, Cholecystitis, Pancreatitis, Zoster, this is not meant to be an all-inclusive list. EKG interpreted by me (3pts min.). @ -As above X-rays interpreted by me (1pt min.). @ -Chest x-ray shows no acute cardiopulmonary process. CT interpreted by me (1pt min.). @ -None done U/S interpreted by me (1pt. min.). @ -None done What testing was considered but not performed or refused? (CT, X-rays, U/S, labs)? Why? @ -None What meds were considered but not given or refused? Why? @ -None Did you discuss the management of the patient with other professionals (professionals i.e. , PA, SERVICE EMPLOYEE, lab, RT, psych nurse, social media manager, laboratory development technician, teacher, corrections officer, rn case management)? Give summary @ -Dr. Cronin for admission Was smoking cessation discussed for >3mins.? @ -No Was critical care preformed (if so, how long)? @ -No Were there social determinants of health that impacted care today? How? (Homelessness, low income, unemployed, alcoholism, drug addiction, transportation, low edu. Level, literacy, decrease access to med. care, correction, rehab)? @ -No Was there de-escalation of care discussed even if they declined (Discuss DNR or withdrawal of care, Hospice)? DNR status @ -No What co-morbidities impacted this encounter? (DM, HTN, Smoking, COPD, CAD, Cancer, CVA, ARF, Chemo, Hep., AIDS, mental health diagnosis, sleep apnea, morbid obesity)? @ -Atrial flutter Was patient admitted / discharged? Hospital course, mention meds given and route, prescriptions, significant lab abnormalities, going to OR and other pertinent info. @ -Noted patient is having persistent chest pain, dizziness. This may be medication induced versus cardiac in nature. Patient will be admitted for cardiac rule out, cardiology evaluation initial troponin, EKG is unchanged. Undiagnosed new problem with uncertain prognosis? @ -No Drug Therapy requiring intensive monitoring for toxicity (Heparin, Nitro, Insulin, Cardizem)? @ -No Were any procedures done? @ -No Diagnosis/symptom? @ -[Chest pain dizziness Acute, or Chronic, or Acute on Chronic? @ -Acute Uncomplicated (without systemic symptoms) or Complicated (systemic symptoms)? @ -Complicated Side effects of treatment? @ -No Exacerbation, Progression, or Severe Exacerbation? @ -No Poses a threat to life or bodily function? How? (Chest pain, [place], [place], pneumonia, PE, COPD, DKA, ARF, appy, cholecystitis, CVA, Diverticulitis, Homicidal, Suicidal, threat to staff... and all critical care pts) @ -Yes risk cardiac function Disposition Clinical Impression: Chest pain, Dizziness Disposition: ADMITTED IP TO THIS HOSP Condition: Fair Referrals: Saran Salgado MD [Primary Care Provider] - 1-2 days Time of Disposition: 14:45
[2024-07-04 12:31] LABS: Basophils # (A) 0.05 10*3/uL (0.00-0.10); Basophils % (A) 0.9 %; Eosinophils # (A) 0.08 10*3/uL (0.04-0.35); Eosinophils % (A) 1.4 %; HCT 39.8 % (37.2-46.3); HGB 13.4 g/dL (12.0-15.0); Lymphocytes % (A) 49.9 %; MCH 29.3 pg (27.0-32.0); MCHC 33.7 g/dL (32.0-37.0); MCV 86.9 fL (80.0-97.0); Mean Platelet Volume 9.6 fL (9.5-12.2); Monocytes # (A) 0.29 10*3/uL (0.20-1.00); Neutrophils # (A) 2.48 10*3/uL (1.80-7.70); Neutrophils % (A) 42.6 %; Platelet Count 223 10*3/uL (140-440); RBC 4.58 10*6/uL (4.10-5.20); RDW 13.6 % (11.5-14.5); WBC 5.81 10*3/uL (4.50-10.00)
[2024-07-04 12:43] LABS: Partial Thromboplastin Time 25.7 sec (22.0-30.0); Prothrombin Time 11.2 sec (10.0-12.5)
[2024-07-04 12:45] LABS: Anion Gap 11 mmol/L; Blood Urea Nitrogen 7 mg/dL (7-17); Carbon Dioxide 27 mmol/L (22-30); Chloride 103 mmol/L (98-107); Glucose 75 mg/dL (74-99); Potassium 4.3 mmol/L (3.5-5.1); Sodium 141 mmol/L (137-145)
[2024-07-04 12:46] LABS: ALT 32 U/L (4-34); AST 29 U/L (14-36); African American GFR (CKD) 89 (>60 ml/min/1.73 sqM); Albumin 4.6 g/dL (3.5-5.0); Alkaline Phosphatase 93 U/L (38-126); Calcium 10.1 mg/dL (8.4-10.2); Magnesium 2.3 mg/dL (1.6-2.3); Non-African American GFR(CKD) 78 (>60 ml/min/1.73 sqM); Total Bilirubin 0.6 mg/dL (0.2-1.3); Total Protein 7.3 g/dL (6.3-8.2)
[2024-07-04 12:53] LABS: NT-Pro-B-Type Natriuretic Pept 186 pg/mL
[2024-07-04] MEDS: ONDANSETRON 4 MG/2 ML VIAL IVP STA (12:55)
[2024-07-04] MEDS: SODIUM CHLORIDE 0.9% 1,000 ML IV ONE (12:55)
[2024-07-04] MEDS: MECLIZINE 12.5 MG TAB PO STA (12:55)
--- NOTE | 2024-07-04 14:24 | XR ---
EXAMINATION TYPE: XR chest 2V DATE OF EXAM: 07/04/2024 CLINICAL INDICATION: Female, 48 years old with history of Chest Pain, TECHNIQUE: Frontal and lateral views of the chest are obtained. COMPARISON: Chest x-ray 2 weeks ago. FINDINGS: There is no focal air space opacity, pleural effusion, or pneumothorax seen. The cardiac silhouette size is within normal limits. EKG leads are redemonstrated. The osseous structures are intact. IMPRESSION: No acute pulmonary process. [facility], , 07/04/2024 2:22 PM
[2024-07-04] MEDS ORDERED: NITROGLYCERIN SL TABS 0.4 MG TAB SUBLINGUAL PRN (14:45)
[2024-07-04] MEDS: ASPIRIN 81 MG PO STA (15:25)
[2024-07-04] MEDS ORDERED: hydrOXYzine HCL 25 MG TAB PO PRN (15:40)
[2024-07-04] MEDS: METOPROLOL TARTRATE 25 MG TAB PO SCH (17:17)
--- NOTE | 2024-07-04 18:05 | P.HPIM ---
History of Present Illness H&P Date: 07/04/24 Hospital course: Patient is a 48-year-old female with a past medical history of atrial fibrillation/flutter on anticoagulation with Eliquis, hyperlipidemia, anxiety with depression, bipolar disorder. She presented to the emergency department with a chief complaint of chest pain. Patient reports she recently had a Holter monitor on for monitoring of her atrial fibrillation/flutter and follows with certified nurse aide Dr. Camargo. She reports experiencing intermittent dizziness/lightheadedness since initial diagnosis of atrial flutter but reports she presented to the emergency department today for chief complaint of chest pain. 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 Patient reports this was accompanied by shortness of breath. She denies having any radiation of pain and denies anything making the pain better or worse. She denies having any headache, diaphoresis, changes in vision or hearing, palpitations, cough or congestion, abdominal pain, nausea or vomiting, or experiencing any numbness/tingling/weakness/swelling in her extremities. Upon arrival to our facility, patient underwent evaluation in the emergency department. Vital signs upon arrival show blood pressure 123/84, heart rate 69, respiratory rate 16, temp 98.0 F, and SpO2 100% on room air. EKG completed showing normal sinus rhythm at 68 bpm with T wave inversion in inferior leads II, III, and aVF. Chest x-ray negative for acute cardiopulmonary process. Labs completed and reviewed. CBC unremarkable. Coagulation profile normal findings. BMP normal findings. Blood glucose was 75. Calcium 10.1. Magnesium 2.3. Liver profile unremarkable. Troponin was negative at less than 0.012 and proBNP 186. Urine hCG negative. Patient mated under services with consultation to cardiology. Physical exam: Vital signs reviewed and stable. General: Nontoxic, no distress and appears stated age. Derm: Skin warm and dry, normal coloration for ethnicity. Head: Atraumatic, normocephalic and symmetric. Eyes: EOM's intact, no lid lag, and anicteric sclera Mouth: no lip lesions, mucus membranes moist Cardiovascular: regular rate and rhythm with normal S1S2, no murmur, positive posterior tibial pulses bilaterally, and cap refill < 2 seconds. Lungs: Respirations even, regular, and unlabored on room air. Lungs CTA bilaterally, no rhonchi, no rales, no wheezing, and no accessory muscle usage. Abdominal: soft, nontender to palpation, no guarding, no appreciable organomegaly Ext: ROM intact. No gross muscle atrophy, no edema, no contractures Neuro: Speech clear, face symmetrical and CN II-XII grossly intact with no noted focal neuro deficits Psych: Alert and oriented to person, place, time, and situation. Appropriate and pleasant affect. Assessment and Plan of Care: Chest pain, rule out acute coronary event Paroxysmal atrial fibrillation/flutter Hyperlipidemia -Cardiology consulted, appreciate recommendations -Telemetry monitoring -Trend troponins -Patient to continue Eliquis 5 mg twice daily, aspirin 81 mg daily, atorvastatin 40 mg nightly, and metoprolol 25 mg 3 times daily Anxiety with depression Bipolar disorder Continue Wellbutrin 300 mg daily, Lamictal 150 mg nightly, Latuda 40 mg nightly, and hydroxyzine 50 mg nightly as needed. Data and imaging reviewed: As stated above in HPI. CODE STATUS: Full code DVT prophylaxis: Eliquis Discussed with: Patient, RN, and ED physician Anticipated discharge date: Pending full course, likely 24 to [address]: Home Patient was seen independently by Nurse Pracitioner. This document was prepared using [employer] dictation software. Please allow for errors in truck dock material mover, while rare they do occur. Mak Bolivar NP rendered care for this patient independently, reviewed the findings and plan as documented in the note above and agree with plan. I did not physically speak with or examine the patient on this date. Past Medical History Past Medical History: Atrial Flutter, Hyperlipidemia History of Any Multi-Drug Resistant Organisms: None Reported Past Surgical History: Section Past Anesthesia/Blood Transfusion Reactions: No Reported Reaction Past Psychological History: Anxiety, Bipolar, Depression Smoking Status: Never smoker Past Alcohol Use History: Occasional Past Drug Use History: None Reported Medications and Allergies Home Medications Medication Instructions Recorded Confirmed Type Omeprazole [PriLOSEC] 20 mg PO DAILY 04/16/20 07/04/24 History Ethinyl Estradiol/Drospirenone 1 tab PO DAILY 06/20/24 07/04/24 History [Alida 28 Tablet] Lurasidone HCl 40 mg PO HS 06/20/24 07/04/24 History Rosuvastatin [Crestor] 20 mg PO HS 06/20/24 07/04/24 History Tirzepatide [Zepbound] 12.5 mg SQ FR 06/20/24 07/04/24 History buPROPion XL [Wellbutrin XL] 300 mg PO DAILY 06/20/24 07/04/24 History hydrOXYzine HCL [Atarax] 50 mg PO HS PRN 06/20/24 07/04/24 History lamoTRIgine [LaMICtal] 150 mg PO HS 06/20/24 07/04/24 History Apixaban [Eliquis] 5 mg PO BID #60 tab 06/22/24 07/04/24 Rx Metoprolol Tartrate [Lopressor] 25 mg PO TID #90 tab 06/22/24 07/04/24 Rx Allergies Allergy/AdvReac Type Severity Reaction Status Date / Time Penicillins Allergy Rash/Hives/ Verified 07/04/24 14:57 Swelling Physical Exam Vitals: Vital Signs Temp Pulse Pulse Resp BP Pulse Ox 07/04/24 14:29 62 15 132/77 100 07/04/24 12:58 70 68 16 117/99 97 07/04/24 12:24 16 07/04/24 10:51 98.0 F 69 16 123/84 100 Intake and Output 07/04/24 07/04/24 07/04/24 06:59 14:59 22:59 Other: Weight 81.647 kg Results CBC & Chem 7: 07/04/24 12:23 07/04/24 12:23
[2024-07-04] MEDS: LURASIDONE 40 MG TAB PO SCH (21:40)
[2024-07-04] MEDS: APIXABAN 5 MG TAB PO SCH (21:40)
[2024-07-04] MEDS: ATORVASTATIN 40 MG TAB PO SCH (21:40)
[2024-07-04] MEDS: lamoTRIgine 100 MG TAB PO SCH (21:41)
[2024-07-05] MEDS: PANTOPRAZOLE 40 MG TABLET PO SCH (06:20)
[2024-07-05 08:30] LABS: Chol/HDL Ratio 2.97 Ratio; LDL Cholesterol,Calculated 88.8 mg/dL (0.0-131.0)
[2024-07-05 08:32] VITALS: RESP 16
[2024-07-05] MEDS ORDERED: ASPIRIN 325 MG TAB PO SCH (09:00)
[2024-07-05] MEDS: ASPIRIN 81 MG PO SCH (09:10)
[2024-07-05] MEDS: buPROPion XL 300 MG TAB.ER.24H PO SCH (09:15)
--- NOTE | 2024-07-05 10:46 | P.CRDCN ---
History of Present Illness History of present illness: HISTORY OF PRESENT ILLNESS: This is a 48-year-old female with a past medical history significant for hyperlipidemia, hypertension, and atrial flutter. Patient follows in the office with Dr. Camargo. We have been asked to see the patient in consultation for chest pain. Patient examined at the bedside. Patient states yesterday she was at work when she started to feel chest discomfort. She states that it felt like her chest was tightening up. She also reports having dizziness. She denied having any palpitations. EKG on admission revealed sinus mechanism. At the time of examination patient denies any chest pain or pressure. She states she has never had had a stress test in the past. She is continuing to take her anticoagulation on an outpatient basis and is scheduled for an ablation in the next [address] Winter for her atrial flutter. DIAGNOSTICS: - EKG reveals sinus mechanism with T wave inversions inferiorly - Chest xray negative for acute process - Laboratory data: Troponin negative x 3 - Current home cardiac medications include Eliquis 5 mg twice a day, metoprolol tartrate 25 mg 3 times daily, rosuvastatin 20 mg at night - Most recent echocardiogram obtained in August 2023 revealed normal EF and mild MR - Cardiac catheterization history: Patient denies REVIEW OF SYSTEMS: At the time of my exam: CONSTITUTIONAL: Denies fever or chills. HEENT: Denies blurred vision, vision changes, or eye pain. Denies hemoptysis CARDIOVASCULAR: Denies chest pain. Denies orthopnea. Denies PND. Denies palpitations RESPIRATORY: Denies shortness of breath. GASTROINTESTINAL: Denies abdominal pain. Denies nausea or vomiting. HEMATOLOGIC: Denies bleeding disorders. GENITOURINARY: Denies any blood in urine. SKIN: Denies pruitis. Denies rash. PHYSICAL EXAM: VITAL SIGNS: Reviewed. GENERAL: Well-developed in no acute distress. HEENT: Head is normocephalic. Pupils are equal, round. Sclerae anicteric. Mucous membranes of the mouth are moist. Neck supple. No JVD or thyromegaly LUNGS: Respirations even and unlabored. Lungs essentially clear to auscultation bilaterally. HEART: Regular rate and rhythm. S1 and S2 heard. ABDOMEN: Soft. Nondistended. Nontender. EXTREMITIES: Normal range of motion. No clubbing or cyanosis. Peripheral pulses intact. No lower extremity edema NEUROLOGIC: Awake and alert. Oriented x 3. ASSESSMENT: Chest pain, troponin negative x 3 Paroxysmal typical atrial flutter, scheduled for outpatient ablation on 08/20/2024 Hypertension Hyperlipidemia PLAN: An acute coronary event has been ruled out Resume home cardiac medications Obtain 2D echo to assess cardiac structure and function Patient to undergo stress echocardiogram today If negative, patient may be discharged home from a cardiac standpoint Patient is scheduled for outpatient ablation on 08/20/2024 Nurse practitioner note has been reviewed by physician. Signing provider agrees with the documented findings, assessment, and plan of care documented by CARPENTER ROUGH as a scribe. Past Medical History Past Medical History: Atrial Flutter, Hyperlipidemia History of Any Multi-Drug Resistant Organisms: None Reported Past Surgical History: Section Past Anesthesia/Blood Transfusion Reactions: No Reported Reaction Past Psychological History: Anxiety, Bipolar, Depression Smoking Status: Former smoker Past Alcohol Use History: Occasional Past Drug Use History: None Reported - Past Family History Father Family Medical History: AFIB Additional Family Medical History / Comment(s): Prostate cancer Mother Family Medical History: Cancer Additional Family Medical History / Comment(s): Breast cancer Medications and Allergies Home Medications Medication Instructions Recorded Confirmed Type Omeprazole [PriLOSEC] 20 mg PO DAILY 04/16/20 07/04/24 History Ethinyl Estradiol/Drospirenone 1 tab PO DAILY 06/20/24 07/04/24 History [Alida 28 Tablet] Lurasidone HCl 40 mg PO HS 06/20/24 07/04/24 History Rosuvastatin [Crestor] 20 mg PO HS 06/20/24 07/04/24 History Tirzepatide [Zepbound] 12.5 mg SQ FR 06/20/24 07/04/24 History buPROPion XL [Wellbutrin XL] 300 mg PO DAILY 06/20/24 07/04/24 History hydrOXYzine HCL [Atarax] 50 mg PO HS PRN 06/20/24 07/04/24 History lamoTRIgine [LaMICtal] 150 mg PO HS 06/20/24 07/04/24 History Apixaban [Eliquis] 5 mg PO BID #60 tab 06/22/24 07/04/24 Rx Metoprolol Tartrate [Lopressor] 25 mg PO TID #90 tab 06/22/24 07/04/24 Rx Allergies Allergy/AdvReac Type Severity Reaction Status Date / Time Penicillins Allergy Rash/Hives/ Verified 07/04/24 14:57 Swelling Physical Exam Vitals: Vital Signs Temp Pulse Pulse Resp BP BP Pulse Ox 07/05/24 09:15 16 07/05/24 06:50 98.2 F 62 16 103/63 99 07/05/24 00:42 98.3 F 75 17 100/63 99 07/04/24 20:25 98.1 F 56 L 17 118/78 100 07/04/24 20:10 67 17 111/67 100 07/04/24 18:15 69 19 119/74 100 07/04/24 17:18 75 16 117/67 100 07/04/24 14:29 62 15 132/77 100 07/04/24 12:58 70 68 16 117/99 97 07/04/24 12:24 16 07/04/24 10:51 98.0 F 69 16 123/84 100 Intake and Output 07/04/24 07/05/24 07/05/24 22:59 06:59 14:59 Other: Voiding Method Toilet # Voids 2 Weight 81.647 kg Results 07/04/24 12:23 07/04/24 12:23 Cardiac Enzymes 07/04/24 07/04/24 07/04/24 Range/Units 12:23 12:23 15:17 AST 29 (14-36) U/L Troponin I <0.012 <0.012 (0.000-0.034) ng/mL 07/04/24 Range/Units 18:49 AST (14-36) U/L Troponin I <0.012 (0.000-0.034) ng/mL Coagulation 07/04/24 Range/Units 12:23 PT 11.2 (10.0-12.5) sec APTT 25.7 (22.0-30.0) sec Lipids 07/04/24 Range/Units 22:39 Triglycerides 107.00 (0.00-149.00) mg/dL Cholesterol 166.00 (0.00-200.00) mg/dL HDL Cholesterol 55.80 (40.00-60.00) mg/dL Cholesterol/HDL Ratio 2.97 Ratio CBC 07/04/24 Range/Units 12:23 WBC 5.81 (4.50-10.00) 10*3/uL RBC 4.58 (4.10-5.20) 10*6/uL Hgb 13.4 (12.0-15.0) g/dL Hct 39.8 (37.2-46.3) % Plt Count 223 (140-440) 10*3/uL Comprehensive Metabolic Panel 07/04/24 Range/Units 12:23 Sodium 141 (137-145) mmol/L Potassium 4.3 (3.5-5.1) mmol/L Chloride 103 (98-107) mmol/L Carbon Dioxide 27 (22-30) mmol/L BUN 7 (7-17) mg/dL Creatinine 0.89 (0.52-1.04) mg/dL Glucose 75 (74-99) mg/dL Calcium 10.1 (8.4-10.2) mg/dL AST 29 (14-36) U/L ALT 32 (4-34) U/L Alkaline Phosphatase 93 (38-126) U/L Total Protein 7.3 (6.3-8.2) g/dL Albumin 4.6 (3.5-5.0) g/dL Current Medications Generic Name Dose Route Start Last Admin Trade Name Freq PRN Reason Stop Dose Admin Apixaban 5 mg 07/04/24 21:00 07/05/24 09:09 Apixaban 5 Mg Tab PO 5 mg BID ABDIAZIZ Administration Protocol Aspirin 81 mg 07/05/24 09:00 07/05/24 09:10 Aspirin 81 Mg PO 81 mg DAILY ABDIAZIZ Administration Atorvastatin Calcium 40 mg 07/04/24 21:00 07/04/24 21:40 Atorvastatin 40 Mg Tab PO 40 mg HS ABDIAIZZ Administration Bupropion HCl 300 mg 07/05/24 09:00 07/05/24 09:15 Bupropion Xl 300 Mg Tab.Er.24h PO 300 mg DAILY ABDIAZIZ Administration Hydroxyzine HCl 50 mg 07/04/24 15:40 Hydroxyzine Hcl 25 Mg Tab PO HS PRN SLEEP Lamotrigine 150 mg 07/04/24 21:00 07/04/24 21:41 Lamotrigine 100 Mg Tab PO 150 mg HS ABDIAZIZ Administration Lurasidone HCl 40 mg 07/04/24 21:00 07/04/24 21:40 Lurasidone 40 Mg Tab PO 40 mg HS ABDIAZIZ Administration Metoprolol Tartrate 25 mg 07/04/24 16:00 07/04/24 21:40 Metoprolol Tartrate 25 Mg Tab PO 25 mg TID ABDIAZIZ Administration Nitroglycerin 0.4 mg 07/04/24 14:45 Nitroglycerin Sl Tabs 0.4 Mg Tab SUBLINGUAL Q5M PRN Chest Pain Pantoprazole Sodium 40 mg 07/05/24 07:30 07/05/24 09:10 Pantoprazole 40 Mg Tablet PO 40 mg [id number] [facility] Administration Intake and Output 07/04/24 07/05/24 07/05/24 22:59 06:59 14:59 Other: Voiding Method Toilet # Voids 2 Weight 81.647 kg 07/04/24 12:23 07/04/24 12:23
--- NOTE | 2024-07-05 14:35 | CA ---
Stress Echo Report Hannah Thomas Age: 48 Gender: F : 1975 Exam Date: 07/05/2024 11:43 Exam Location: [facility] Ht (in): 66 Wt (lb): 180 Ordering Physician: Judi Bain Referring Physician: [id number] [employer]atering Sales Manager: Nisa Olson RDCS Technologist Procedure CPT: Indication: Chest pain, dizzy ICD-9 Codes: Rhythm: Patient History: CHEST PAIN, DIFFICULTY IN BREATHING, HTN, HYPERCHOLESTEROLEMIA, FAMILY HX OF HEART DISEASE Cardiac Medications: SEE CHART,,,,, Medications in past 24 hours: Contrast: N/A Stress Results Protocol: Saurabh Total dose(mL): Exercise Duration (min:sec): Max ST Depression (mm): Angina Score: Reeves Score: METS: 9.3 Resting HR: 72 Resting BP: 121 / 53 Peak HR: 135 Peak BP: 154 / 48 Max Predicted HR: 173 78 % Max Predicted HR Target HR: 147 Double Product: [id number] Stress Summary: BP Response: Reason for Termination: MAX EXERTION Cardiac Symptoms: DIZZINESS, UNABLE TO CONTINUE ECG Analysis Resting ECG: Stress ECG: Arrhythmia: Echo Analysis Resting Echo: Peak Echo Analysis: MEASUREMENTS (Male/Female) Normal Values CONCLUSIONS Reason for stress test: Chest discomfort shortness of breath on exertion dyslipidemia hypertension Average exercise capacity of 8 minutes Normal heart rate and blood pressure response No ECG evidence for ischemia No echocardiographic evidence for ischemia Dr. Deepak Winter MD (Electronically Signed) Final Date: 05 Jul 2024 14:34
[2024-07-05 15:23] VITALS: BP 119/73; PULSE 72; TEMP 98.3
--- NOTE | 2024-07-05 15:45 | P.DS ---
Providers Date of admission: 07/04/24 15:42 Expected date of discharge: 07/05/24 Attending physician: Bobby Cronin Consults: 07/04/24 14:45 Consult Physician Urgent Consulting Provider: Farnsisco Camargo Consult Reason/Comments: chest pain Do you want consulting provider notified?: Yes Primary care physician: Saran Salgado Hospital Course: Discharge Diagnosis: Chest pain, acute coronary event ruled out. Dizziness, ongoing x 2 months since initial diagnosis of atrial flutter. Paroxysmal atrial fibrillation/flutter. Patient to continue Eliquis 5 mg twice daily and metoprolol 25 mg 3 times daily Hyperlipidemia. Patient to continue atorvastatin 40 mg nightly Anxiety with depression. Continue Wellbutrin 300 mg daily, Lamictal 150 mg nightly, Latuda 40 mg nightly, and hydroxyzine 50 mg nightly as needed. Bipolar disorder. Continue Wellbutrin 300 mg daily, Lamictal 150 mg nightly, Latuda 40 mg nightly, and hydroxyzine 50 mg nightly as needed. Hospital Course: Patient is a 48-year-old female with a past medical history of atrial fibrillation/flutter on anticoagulation with Eliquis, hyperlipidemia, anxiety with depression, bipolar disorder. She presented to the emergency department with a chief complaint of chest pain. Patient reports she recently had a Holter monitor on for monitoring of her atrial fibrillation/flutter and follows with emergency room clinician Dr. Camargo. She reports experiencing intermittent dizziness/lightheadedness since initial diagnosis of atrial flutter but reports she presented to the emergency department today for chief complaint of chest pain. 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 Patient reports this was accompanied by shortness of breath. She denies having any radiation of pain and denies anything making the pain better or worse. She denies having any headache, diaphoresis, changes in vision or hearing, palpitations, cough or congestion, abdominal pain, nausea or vomiting, or experiencing any numbness/tingling/weakness/swelling in her ext remities. Upon arrival to our facility, patient underwent evaluation in the emergency department. Vital signs upon arrival show blood pressure 123/84, heart rate 69, respiratory rate 16, temp 98.0 F, and SpO2 100% on room air. EKG completed showing normal sinus rhythm at 68 bpm with T wave inversion in inferior leads II, III, and aVF. Chest x-ray negative for acute cardiopulmonary process. Labs completed and reviewed. CBC unremarkable. Coagulation profile normal findings. BMP normal findings. Blood glucose was 75. Calcium 10.1. Magnesium 2.3. Liver profile unremarkable. Troponin was negative at less than 0.012 and proBNP 186. Urine hCG negative. Patient mated under services with consultation to cardiology. Troponins trended all negative at less than 0.012 x 3 draws. Stress echo completed showing average exercise capacity with normal heart rate and blood pressure response and no ECG evidence for ischemia and no echocardiographic evidence for ischemia. Cardiology clearing patient from their perspective for discharge stating no need to wait for echocardiogram results and recommending patient follow-up outpatient with primary emergency room clinician Dr. Camargo in 1 week. Patient is medically optimized for discharge at this time, no medication changes made during this admission. Patient to follow-up outpatient with PCP in 1 to 2 days and with emergency room clinician in 1 week. Physical exam: Vital signs reviewed and stable. General: Nontoxic, no distress and appears stated age. Derm: Skin warm and dry, normal coloration for ethnicity. Head: Atraumatic, normocephalic and symmetric. Eyes: EOM's intact, no lid lag, and anicteric sclera Mouth: no lip lesions, mucus membranes moist Cardiovascular: regular rate and rhythm with normal S1S2, no murmur, positive posterior tibial pulses bilaterally, and cap refill < 2 seconds. Lungs: Respirations even, regular, and unlabored on room air. Lungs CTA bilaterally, no rhonchi, no rales, no wheezing, and no accessory muscle usage. Abdominal: soft, nontender to palpation, no guarding, no appreciable organomegaly Ext: ROM intact. No gross muscle atrophy, no edema, no contractures Neuro: Speech clear, face symmetrical and CN II-XII grossly intact with no noted focal neuro deficits Psych: Alert and oriented to person, place, time, and situation. Appropriate and pleasant affect. A total of 33 minutes of time were spent preparing this complex discharge summary. Pt was discharged on 07/05/2024 at 3:27 PM Patient was seen independently by Nurse Practitioner. This document was prepared using [employer] dictation software. Please allow for errors in spinning bath person while rare they do occur. Mak Bolivar NP rendered care for this patient independently, reviewed the findings and plan as documented in the note above. I did not physically speak with or examine the patient on this date. Patient Condition at Discharge: Stable Plan - Discharge Summary Discharge Rx Participant: Yes New Discharge Prescriptions: Continue Omeprazole [PriLOSEC] 20 mg PO DAILY hydrOXYzine HCL [Atarax] 50 mg PO HS PRN PRN Reason: SLEEP Lurasidone HCl 40 mg PO HS Ethinyl Estradiol/Drospirenone [Alida 28 Tablet] 1 tab PO DAILY Metoprolol Tartrate [Lopressor] 25 mg PO TID #90 tab buPROPion XL [Wellbutrin XL] 300 mg PO DAILY Rosuvastatin [Crestor] 20 mg PO HS lamoTRIgine [LaMICtal] 150 mg PO HS Tirzepatide [Zepbound] 12.5 mg SQ FR Apixaban [Eliquis] 5 mg PO BID #60 tab Discharge Medication List Omeprazole [PriLOSEC] 20 mg PO DAILY 04/16/20 [History] Ethinyl Estradiol/Drospirenone [Alida 28 Tablet] 1 tab PO DAILY 06/20/24 [History] Lurasidone HCl 40 mg PO HS 06/20/24 [History] Rosuvastatin [Crestor] 20 mg PO HS 06/20/24 [History] Tirzepatide [Zepbound] 12.5 mg SQ FR 06/20/24 [History] buPROPion XL [Wellbutrin XL] 300 mg PO DAILY 06/20/24 [History] hydrOXYzine HCL [Atarax] 50 mg PO HS PRN 06/20/24 [History] lamoTRIgine [LaMICtal] 150 mg PO HS 06/20/24 [History] Apixaban [Eliquis] 5 mg PO BID #60 tab 06/22/24 [Rx] Metoprolol Tartrate [Lopressor] 25 mg PO TID #90 tab 06/22/24 [Rx] Follow up Appointment(s)/Referral(s): Fransisco Camargo MD [STAFF PHYSICIAN] - 1 Week Saran Salgado MD [Primary Care Provider] - 1-2 days Patient Instructions/Handouts: Chest Pain (DC), Dizziness (ED) Activity/Diet/Wound Care/Special Instructions: Activity: As tolerated. Take breaks as needed. Diet: Heart healthy and carb consistent diet. Special Instructions: Take all of your medications as directed and remember to keep all of your doctor's appointments and follow-up as needed. Thank you for allowing us to participate in your care, it was truly a pleasure having you for our patient!!! Discharge/Stand Alone Forms: Work/School Release / Restrict Discharge Disposition: HOME SELF-CARE
--- NOTE | 2024-07-05 18:06 | CA ---
Transthoracic Echo Report Name: Hannah Thomas Age: 48 Gender: F : 1975 Exam Date: 07/05/2024 09:47 Exam Location: [place] [facility] Ht (in): 66 Wt (lb): 180 Ordering Physician: Judi Bain Attending/Referring Phys: [id number], [employer]ell Video Production Specialist Nisa Olson RDCS Procedure CPT: Indications: Chest pain, dizzy Cardiac Hx: Technical Quality: Good Contrast 1: Total Dose (mL): Contrast 2: Total Dose (mL): MEASUREMENTS (Male / Female) Normal Values 2D ECHO LV Diastolic Diameter PLAX 4.1 cm 4.2 - 5.9 / 3.9 - 5.3 cm LV Systolic Diameter PLAX 3.2 cm IVS Diastolic Thickness 1.1 cm 0.6 - 1.0 / 0.6 - 0.9 cm LVPW Diastolic Thickness 1.2 cm 0.6 - 1.0 / 0.6 - 0.9 cm LV Relative Wall Thickness 0.5 RV Internal Dim ED PLAX 1.8 cm LA Systolic Diameter LX 3.4 cm 3.0 - 4.0 / 2.7 - 3.8 cm LV Diastolic Volume MOD BP 83.7 cm??? 67 - 155 / 56 - 104 cm??? LV Systolic Volume MOD BP 32.8 cm??? 22 - 58 / 19 - 49 cm??? LV Ejection Fraction MOD BP 60.8 % >= 55 % LV Cardiac Index MOD BP 1521.9 cm???/min???m??? LV Diastolic Volume MOD 4C 93.1 cm??? LV Systolic Volume MOD 4C 28.1 cm??? LV Ejection Fraction MOD 4C 69.9 % LV Cardiac Index MOD 4C 1946.7 cm???/min???m??? LV Diastolic Length 4C 8.0 cm LV Systolic Length 4C 6.6 cm LV Diastolic Volume MOD 2C 72.8 cm??? LV Systolic Volume MOD 2C 37.6 cm??? LV Ejection Fraction MOD 2C 48.3 % LV Cardiac Index MOD 2C 1051.9 cm???/min???m??? LV Diastolic Length 2C 7.8 cm LV Systolic Length 2C 6.5 cm M-MODE Aortic Root Diameter MM 3.0 cm LA Systolic Diameter MM 3.4 cm LA Ao Ratio MM 1.1 AV Cusp Separation MM 2.0 cm DOPPLER Mitral E Point Velocity 69.1 cm/s Mitral A Point Velocity 60.5 cm/s Mitral E to A Ratio 1.1 MV Deceleration Time 281.8 ms MV E' Velocity 9.9 cm/s Mitral E to MV E' Ratio 7.0 TR Peak Velocity 199.2 cm/s TR Peak Gradient 15.9 mmHg Right Ventricular Systolic Press 26.0 mmHg FINDINGS Left Ventricle Left ventricular ejection fraction is estimated at 55-60 %. Mildly increased septal wall thickness. Mildly increased posterior wall thickness. Normal left ventricular systolic function with no obvious regional wall motion abnormalities. Left ventricular cavity size normal. Right Ventricle Normal right ventricular size and function. Right ventricular systolic pressure within normal limits. Right Atrium Normal right atrial size. Left Atrium Normal left atrial size. Mitral Valve Structurally normal mitral valve. Mild mitral regurgitation. No mitral stenosis. Aortic Valve Trileaflet aortic valve. No aortic valve stenosis or regurgitation. Tricuspid Valve Structurally normal tricuspid valve. No tricuspid stenosis. Trace to mild tricuspid regurgitation. Pulmonic Valve Structurally normal pulmonic valve. Trace pulmonic regurgitation. No pulmonic stenosis. Pericardium No pericardial or pleural effusion. Aorta Normal size aortic root and proximal ascending aorta. CONCLUSIONS Reason for test: Syncope, bradycardia Normal LV size and function Normal RV size and function Thickened posterior pericardium Previewed by: Dr. Deepak Winter MD (Electronically Signed) Final Date: 05 Jul 2024 18:05
== END 2024-07-05 17:00 | disposition home or self-care (01) ==
LOC: EC 10:49 → 6NMEDSUR 15:42
PROVIDERS: ADMIT Student in an Organized Health Care Education/Training Program; ATTEND Student in an Organized Health Care Education/Training Program
DX: R07.89 Other chest pain (principal); I48.3 Typical atrial flutter; I48.0 Paroxysmal atrial fibrillation; I10 Essential (primary) hypertension; E78.5 Hyperlipidemia, unspecified; F41.9 Anxiety disorder, unspecified; F31.9 Bipolar disorder, unspecified; Z79.01 Long term (current) use of anticoagulants; Z79.3 Long term (current) use of hormonal contraceptives; Z79.85 Long-term (current) use of injectable non-insulin antidiabetic drugs; Z79.899 Other long term (current) drug therapy; Z88.0 Allergy status to penicillin
CPT/HCPCS: 96361; 96374; 99285; 36415; 93005; 93306; 93351; 83880; 80061; 80053; 83735; 84484; 85025; 85610; 85730; 81025; 71046; G0378 ×2; J2405

== ENCOUNTER → 2024-08-13 | Outpatient (CLI) | payer BC ==
[2024-08-13 15:31] LABS: HCT 38.1 % (37.2-46.3); HGB 12.1 g/dL (12.0-15.0); MCH 28.6 pg (27.0-32.0); MCHC 31.8 g/dL (32.0-37.0); MCV 90.1 FL (80.0-97.0); NRBC Per 100 WBC 0 X 10*3/uL (0.00-0.01); Platelet Count 240 X 10*3/uL (140-440); RBC 4.23 X 10*6/uL (4.10-5.20); RDW 13.7 % (11.5-14.5); WBC 7.27 X 10*3/uL (4.50-10.00)
[2024-08-13 15:49] LABS: Blood Urea Nitrogen 9.1 mg/dL (9.0-27.0); Carbon Dioxide 23.2 mmol/L (21.6-31.8); Chloride 106 mmol/L (96-109); Potassium 4.3 mmol/L (3.5-5.5); Sodium 141 mmol/L (135-145)
== END | disposition home or self-care (01) ==
LOC: LABWHC1 10:09
PROVIDERS: ATTEND Internal Medicine Clinical Cardiac Electrophysiology
DX: Z01.812 Encounter for preprocedural laboratory examination (principal); I48.92 Unspecified atrial flutter
CPT/HCPCS: 80051; 82565; 84520; 85027

== ENCOUNTER 2024-08-20 10:39 | Day surgery (SDC) | payer BC ==
[2024-08-20] MEDS: SODIUM CHLORIDE 0.9% 1,000 ML IV SCH (11:38)
[2024-08-20] MEDS: IV FLUID CONTINUATION 1,000 ML IV ONE (12:06)
[2024-08-20 12:13] LABS: Basophils # (A) 0.03 10*3/uL (0.00-0.10); Basophils % (A) 0.6 %; Eosinophils # (A) 0.07 10*3/uL (0.04-0.35); Eosinophils % (A) 1.5 %; HCT 37.9 % (37.2-46.3); HGB 12.6 g/dL (12.0-15.0); Lymphocytes # (A) 2.49 10*3/uL (0.90-5.00); Lymphocytes % (A) 52.4 %; MCH 29.4 pg (27.0-32.0); MCHC 33.2 g/dL (32.0-37.0); MCV 88.3 fL (80.0-97.0); Monocytes # (A) 0.25 10*3/uL (0.20-1.00); Monocytes % (A) 5.3 %; Neutrophils # (A) 1.90 10*3/uL (1.80-7.70); Neutrophils % (A) 40.0 %; Platelet Count 249 10*3/uL (140-440); RBC 4.29 10*6/uL (4.10-5.20); RDW 13.6 % (11.5-14.5); WBC 4.75 10*3/uL (4.50-10.00)
[2024-08-20 12:42] LABS: African American GFR (CKD) >90 (>60 ml/min/1.73 sqM); Anion Gap 11 mmol/L; Blood Urea Nitrogen 11 mg/dL (7-17); Calcium 9.9 mg/dL (8.4-10.2); Carbon Dioxide 25 mmol/L (22-30); Chloride 104 mmol/L (98-107); Glucose 82 mg/dL (74-99); Non-African American GFR(CKD) 82 (>60 ml/min/1.73 sqM); Potassium 4.1 mmol/L (3.5-5.1); Sodium 140 mmol/L (137-145)
[2024-08-20] MEDS ORDERED: GLYCOPYRROLATE 0.2 MG/ML 2 ML VIAL ONE (13:53)
[2024-08-20] MEDS ORDERED: MIDAZOLAM 2 MG/2 ML VIAL ONE (13:53)
[2024-08-20] MEDS ORDERED: SUCCINYLCHOLINE CHLORIDE 200 MG/10 ML VIAL IV ONE (13:53)
[2024-08-20] MEDS ORDERED: PHENYLEPHRINE 10 MG/ML VIAL ONE (13:53)
[2024-08-20] MEDS ORDERED: ISOPROTERENOL 250 MCG/1.25 ML SYR IV ONE (13:53)
[2024-08-20] MEDS ORDERED: LIDOCAINE 1% INJ 10MG/ML (20 ML MDV) ONE (13:53)
[2024-08-20] MEDS ORDERED: PROPOFOL 10 MG/ML 20 ML VIAL IV ONE (13:53)
[2024-08-20] MEDS ORDERED: fentaNYL (PF) 50 MCG/ML 2 ML AMP ONE (13:53)
--- NOTE | 2024-08-20 14:29 | P.HPCAR ---
History of Present Illness This is Dr. Winter dictating an H/P on this patient The patient was interviewed and examined IMPRESSION / ASSESSMENT: Typical atrial flutter with RVR and very symptomatic with shortness of breath and dizziness and presyncope History of hypertension and dyslipidemia PLAN: Diagnose EP study and ablation for typical atrial flutter Continue Eliquis uninterrupted for the next 2 months at least Follow-up with Dr. Camargo in a week HPI Patient has a history of asymptomatic episodes of tachycardia. Twelve-lead EKG confirmed typical atrial flutter. She has been experiencing recurrent episodes of dizziness feeling hot and lightheaded with elevated heart rates for the last several months Denies any fever chills cough expectoration or any recent chest discomfort in the last 1 to 2 weeks. She remains on Eliquis ROS: No fever chills or rigors, no cough, phlegm or expectoration, no nausea, vomiting or diarrhea, no hematuria, dysuria, no musculoskeletal complaints, no strokes or seizures, no skin lesions. EXAMINATION: 102/66 mmHg afebrile pulse rate in the 60s Heart sounds S1-S2 normal Breath sounds are clear No rhonchi no crackles on lung examination No lower extremity edema No JVD REVIEW OF LABS, ECG & MEDICAL DATA Hemoglobin 12.6 Sodium 140 electrolytes normal Physical Exam Vitals: Vital Signs Temp Pulse Resp BP Pulse Ox 08/20/24 12:07 98.1 F 60 16 102/66 100 Intake and Output 08/19/24 08/20/24 08/20/24 22:59 06:59 14:59 Intake Total 50 Balance 50 Intake: IV 50 Other: Weight 79.1 kg Past Medical History Past Medical History: Atrial Flutter, Hyperlipidemia Additional Past Medical History / Comment(s): occasional nausea-omeprazole helps, see Dr Winter H & P History of Any Multi-Drug Resistant Organisms: None Reported Past Surgical History: Section Additional Past Surgical History / Comment(s): EGD Past Anesthesia/Blood Transfusion Reactions: No Reported Reaction Smoking Status: Former smoker - Past Family History Father Family Medical History: AFIB Additional Family Medical History / Comment(s): Prostate cancer Mother Family Medical History: Cancer Additional Family Medical History / Comment(s): Breast cancer Physical Examination Vital Signs Temp Pulse Resp BP Pulse Ox 08/20/24 12:07 98.1 F 60 16 102/66 100 Intake and Output 08/19/24 08/20/24 08/20/24 22:59 06:59 14:59 Intake Total 50 Balance 50 Intake: IV 50 Other: Weight 79.1 kg Results 08/20/24 11:45 08/20/24 11:45 CBC 08/20/24 Range/Units 11:45 WBC 4.75 (4.50-10.00) 10*3/uL RBC 4.29 (4.10-5.20) 10*6/uL Hgb 12.6 (12.0-15.0) g/dL Hct 37.9 (37.2-46.3) % Plt Count 249 (140-440) 10*3/uL Comprehensive Metabolic Panel 08/20/24 Range/Units 11:45 Sodium 140 (137-145) mmol/L Potassium 4.1 (3.5-5.1) mmol/L Chloride 104 (98-107) mmol/L Carbon Dioxide 25 (22-30) mmol/L BUN 11 (7-17) mg/dL Creatinine 0.85 (0.52-1.04) mg/dL Glucose 82 (74-99) mg/dL Calcium 9.9 (8.4-10.2) mg/dL Current Medications Generic Name Dose Route Start Last Admin Trade Name Freq PRN Reason Stop Dose Admin Sodium Chloride 1,000 mls @ 20 mls/hr 08/20/24 05:57 08/20/24 11:38 Saline 0.9% IV 09/19/24 05:56 20 mls/hr .Q24H ABDIAZIZ Administration Intake and Output 08/19/24 08/20/24 08/20/24 22:59 06:59 14:59 Intake Total 50 Balance 50 Intake: IV 50 Other: Weight 79.1 kg Patient Weight 08/21/24 06:59 Weight 79.1 kg 08/20/24 11:45 08/20/24 11:45
[2024-08-20] MEDS: LIDOCAINE 1% INJ 10MG/ML (20 ML MDV) SQ ONE (14:36)
[2024-08-20] MEDS: HEPARIN SODIUM (1,000 UNIT/ML) 1,000 UNIT in SODIUM CHLORIDE 0.9% 1,000 ML IRRIGATION ONE (15:00)
[2024-08-20] MEDS ORDERED: ACETAMINOPHEN TAB 325 MG TAB PO PRN (16:59)
--- NOTE | 2024-08-20 17:11 | P.EPPROC ---
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 General anesthesia provided. Venous sheaths placed in the right and left femoral veins Diagnostic catheters placed in the high right atrial area His bundle area RV coronary sinus and in the right atrium. Mapping and ablation catheter placed. Penta ray catheter placed 2 different sheaths employed Sinus cycle length 907 ms, ID interval 159 ms QRS 105 ms QT 408 ms AH during slow pathway conduction was 399 ms and HV interval 56 ms Sinus node recovery time 1203 ms. AV node Wenckebach block less than 300 ms. AV giancarlo reentry easily induced when given Isopril At the end of the procedure post ablation ID interval 157 ms First intracardiac echocardiography was performed. 3D mapping of the cavotricuspid isthmus performed. 4.1 cm length Successful RF ablation in the cavotricuspid isthmus with a complete line of block Bidirectional block proven with differential pacing Activation mapping revealed complete line of block when pacing from the coronary sinus However antegrade slow pathway conduction was very easily inducible and then when patient received Isopril AV giancarlo reentry was induced Therefore mapping of the slow pathway was performed. An RF line of block was made from the tricuspid annulus along the septal side of the first RF lesion and junctional beats were obtained. Following that complete absence of slow pathway conduction was noted. No further inducible arrhythmias. Patient tolerated the procedure well without any acute complications venous accesses were sealed with closure devices Plan Continue Eliquis for a minimum of 2 months Stop metoprolol completely Continue all other medications
[2024-08-20] MEDS: ACETAMINOPHEN IV (For NPO) 1,000 MG in EMPTY BAG 1 BAG IVPB ONE (19:00)
[2024-08-20] MEDS: lamoTRIgine 100 MG TAB PO SCH (22:44)
[2024-08-20] MEDS: LURASIDONE 40 MG TAB PO SCH (22:46)
[2024-08-20] MEDS: ATORVASTATIN 40 MG TAB PO SCH (22:46)
[2024-08-20] MEDS: APIXABAN 5 MG TAB PO SCH (22:46)
[2024-08-21] MEDS: PANTOPRAZOLE 40 MG TABLET PO SCH (06:16)
[2024-08-21 07:57] VITALS: BP 99/56; PULSE 68; RESP 17; TEMP 98.2
--- NOTE | 2024-08-21 12:42 | P.DS ---
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 Camargo in a week HPI Patient has a history of asymptomatic episodes of tachycardia. Twelve-lead EKG confirmed typical atrial flutter. She has been experiencing recurrent episodes of dizziness feeling hot and lightheaded with elevated heart rates for the last several months Denies any fever chills cough expectoration or any recent chest discomfort in the last 1 to 2 weeks. She remains on Eliquis ROS: No fever chills or rigors, no cough, phlegm or expectoration, no nausea, vomiting or diarrhea, no hematuria, dysuria, no musculoskeletal complaints, no strokes or seizures, no skin lesions. EXAMINATION: 99/56 mmHg afebrile pulse rate in the 60s Heart sounds S1-S2 normal Breath sounds are clear No rhonchi no crackles on lung examination No lower extremity edema No JVD REVIEW OF LABS, ECG & MEDICAL DATA Hemoglobin 12.6 Sodium 140 electrolytes normal Nurse practitioner note has been reviewed, I agree with documented findings and plan of care. Patient was seen and examined. Plan - Discharge Summary Discharge Rx Participant: Yes New Discharge Prescriptions: Continue Omeprazole [PriLOSEC] 20 mg PO DAILY hydrOXYzine HCL [Atarax] 50 mg PO HS PRN PRN Reason: SLEEP Lurasidone HCl 40 mg PO HS Ethinyl Estradiol/Drospirenone [Alida 28 Tablet] 1 tab PO DAILY buPROPion XL [Wellbutrin XL] 300 mg PO DAILY Rosuvastatin [Crestor] 20 mg PO HS lamoTRIgine [LaMICtal] 150 mg PO HS Tirzepatide [Zepbound] 12.5 mg SQ TH Apixaban [Eliquis] 5 mg PO BID #60 tab Discontinued Metoprolol Tartrate [Lopressor] 25 mg PO TID #90 tab Discharge Medication List Omeprazole [PriLOSEC] 20 mg PO DAILY 04/16/20 [History] Ethinyl Estradiol/Drospirenone [Alida 28 Tablet] 1 tab PO DAILY 06/20/24 [History] Lurasidone HCl 40 mg PO HS 06/20/24 [History] Rosuvastatin [Crestor] 20 mg PO HS 06/20/24 [History] Tirzepatide [Zepbound] 12.5 mg SQ TH 06/20/24 [History] buPROPion XL [Wellbutrin XL] 300 mg PO DAILY 06/20/24 [History] hydrOXYzine HCL [Atarax] 50 mg PO HS PRN 06/20/24 [History] lamoTRIgine [LaMICtal] 150 mg PO HS 06/20/24 [History] Apixaban [Eliquis] 5 mg PO BID #60 tab 06/22/24 [Rx] Follow up Appointment(s)/Referral(s): Fransisco Camargo MD [STAFF PHYSICIAN] - 1 Week (Office will call with follow up appointment date and time.) Patient Instructions/Handouts: Cardiac Ablation (DC) Activity/Diet/Wound Care/Special Instructions: Post EP study - Ablation instructions 1. Keep access sites dry for 2 days. 2. No heavy lifting or straining for 2 days. 3. Avoid bending the hips repeatedly for 2 days. 4. You may go up and down stairs slowly 5. If you have had an ablation for atrial fibrillation or atrial flutter and are on a blood thinner, do not stop the blood thinner even temporarily for 3 months post ablation Call if the following is noted 1. Bleeding, increasing swelling or pain at the access sites. 2. Increasing chest discomfort, especially upon taking a deep breath. 3. Increasing shortness of breath, at rest or with exertion. 4. Undue cough / phlegm 5. Difficulty or pain while swallowing. 6. Pain or change in color in the extremities. 7. Fever, chills, rigors. 8. Increasing headache or neurologic symptoms. 9. Dizziness, fainting, palpitations For patients who have undergone an A-fib ablation /atrial flutter ablation Strict instruction; do NOT stop anticoagulation (Eliquis/Xarelto/Pradaxa) for the next 2 months temporarily, for any elective, nonurgent surgery. This increases the risk of stroke, post A-fib ablation Stop metoprolol Discharge Disposition: HOME SELF-CARE
--- NOTE | 2024-08-21 14:46 | P.PRLE ---
RE: Hannah Thomas Dear Saran Hannah underwent diagnostic EP study and successful ablation for typical atrial flutter with confirmed bidirectional block. However she also had evidence of antegrade slow pathway conduction and easily inducible AV giancarlo reentry which explains her symptoms of recurrent palpitations for quite some time. She underwent successful ablation of the slow pathway with elimination of antegrade slow pathway conduction and noninducibility of AV giancarlo reentry I have asked her to stop beta-blockers but continue uninterrupted anticoagulation at least for 2 months Thank you for entrusting me with the care of the patient Warm regards Sincerely Deepak Winter
== END 2024-08-21 10:45 | disposition home or self-care (01) ==
LOC: CATHEP 10:39 → 6NMEDSUR 17:08 → CATHEP 08-21 10:45
PROVIDERS: ATTEND Internal Medicine Clinical Cardiac Electrophysiology
DX: I48.3 Typical atrial flutter (principal); I44.1 Atrioventricular block, second degree; I47.19 Other supraventricular tachycardia; K21.9 Gastro-esophageal reflux disease without esophagitis; I10 Essential (primary) hypertension; E78.5 Hyperlipidemia, unspecified; F31.30 Bipolar disorder, current episode depressed, mild or moderate severity, unspecified; F41.9 Anxiety disorder, unspecified; Z80.3 Family history of malignant neoplasm of breast; Z87.891 Personal history of nicotine dependence; Z98.890 Other specified postprocedural states; Z79.01 Long term (current) use of anticoagulants; Z79.899 Other long term (current) drug therapy
CPT/HCPCS: 93623; 93662; 93653; 93655; 86900; 86901; 80048; 85025; 86850; 81025; C1759; C1894; C1769; C1766; C1760 ×2; C2630; C1730; C1731; C1893; C1732; J2250; J0330; J2003; J3010; J1644; J0131; J2704; J2371; J1596